=== PATIENT | female | born 1950 | race Caucasian/White ===

== ENCOUNTER 2017-12-26 08:45 | Day surgery (SDC) | payer MEDICARE, BC ==
[~2017-12-26] VITALS: Ht 161.3 cm; Wt 80.1 kg
[2017-12-26] MEDS ORDERED: normal saline 1000ml 1,000 ML IV PRN (09:10)
[2017-12-26 09:15] VITALS: BP 149/86
[2017-12-26] MEDS ORDERED: LOSA25TA96 PO (09:20)
[2017-12-26] MEDS ORDERED: CYCL5TAB14 PEG (09:20)
[2017-12-26] MEDS ORDERED: TRAM50TA2 PO (09:20)
[2017-12-26] MEDS ORDERED: MELO-102 PO (09:20)
[2017-12-26 12:30] VITALS: BP 136/74
[2017-12-26 12:50] VITALS: BP 137/74
[2017-12-26 13:05] VITALS: BP 151/75
[2017-12-26 13:20] VITALS: BP 164/75
[2017-12-26 13:50] VITALS: BP 137/74
== END 2017-12-26 13:40 | disposition home or self-care (01) ==
LOC: SSTAY O 08:45
PROVIDERS: ATTEND Radiology Diagnostic Radiology
DX: M79.89 Other specified soft tissue disorders (principal); I10 Essential (primary) hypertension; E11.9 Type 2 diabetes mellitus without complications; F10.21 Alcohol dependence, in remission; Z90.710 Acquired absence of both cervix and uterus; Z85.42 Personal history of malignant neoplasm of other parts of uterus; Z79.1 Long term (current) use of non-steroidal anti-inflammatories (NSAID); Z79.899 Other long term (current) drug therapy; Z87.891 Personal history of nicotine dependence
CPT/HCPCS: 20206; 76942; A6449; J7030; 88173; 88305; 88341; 88342

== ENCOUNTER 2022-04-05 11:36 | Emergency (ER) | payer MEDICARE, BC ==
[~2022-04-05] VITALS: Ht 161.3 cm; Wt 56.8 kg
[~2022-04-05 11:36] MED LIST: CYCL5TAB14 PEG; LOSA25TA96 PO; MELO-102 PO; TRAM50TA2 PO
[2022-04-05 11:39] VITALS: BP 161/86
== END 2022-04-05 20:47 | disposition left against medical advice (07) ==
LOC: ER 11:36
DX: R53.1 Weakness (principal); Z53.21 Procedure and treatment not carried out due to patient leaving prior to being seen by health care provider
CPT/HCPCS: 82948; 93005

== ENCOUNTER 2022-04-07 19:37 | Inpatient (IN) | payer MEDICARE, BC ==
[~2022-04-07] VITALS: Ht 160 cm; Wt 65.9 kg
[2022-04-07 21:26] LABS: EOSINOPHILS % (AUTO) 0 % (0-6); MONOCYTES # (AUTO) 1.2 X10'3 (0-0.9); MONOCYTES % (AUTO) 7.6 % (2-12)
[2022-04-07 21:28] LABS: BASOPHILS % (AUTO) 0.2 % (0-1); LYMPHOCYTES # (AUTO) 1.1 X10'3 (1.1-4.8); LYMPHOCYTES % (AUTO) 6.9 % (21-51); MEAN PLATELET VOLUME 7.9 FL (7.4-10.4); NEUTROPHILS % (AUTO) 85.3 % (42-75); PLATELET COUNT 465 X10'3 (140-440); WHITE BLOOD COUNT 15.3 X10'3 (4.5-11.0)
[2022-04-07 21:48] LABS: ALANINE AMINOTRANSFERASE 18 U/L (12-78); ALBUMIN 3.6 G/DL (3.4-5.0); ALBUMIN/GLOBULIN RATIO 1.3 (1.1-1.5); ALKALINE PHOSPHATASE 85 IU/L (46-116); ANION GAP 29 (8-16); ASPARTATE AMINO TRANSFERASE 22 U/L (10-37); BILIRUBIN,TOTAL 0.5 MG/DL (0.1-1.0); BLOOD UREA NITROGEN 6 MG/DL (7-18); BUN/CREATININE RATIO 3.5 (6.6-38.0); CHLORIDE 109 MMOL/L (99-107); CREATININE 1.73 MG/DL (0.40-0.90); GLUCOSE 120 MG/DL (70-104); SODIUM 145 MMOL/L (135-145); TOTAL PROTEIN 6.4 G/DL (6.4-8.2); eGFR 29 ML/MIN
[2022-04-07 21:49] LABS: POTASSIUM 4.1 MMOL/L (3.5-5.1)
[2022-04-07 21:58] LABS: TOTAL CARBON DIOXIDE 7.1 MMOL/L (24-32)
--- NOTE | 2022-04-07 22:00 | NUR ---
Patient c/o shortness of breath, beginning to become tachypnic and anxious. Vitals are stable. Patient placed on 2L NC to assist with oxygenation.
[2022-04-07 22:05] LABS: HEMATOCRIT 39.3 % (35.0-45.0); HEMOGLOBIN 13.2 g/dl (12.0-16.0); MEAN CORPUSCULAR HEMOGLOBIN 33.6 PG (27.0-31.0); MEAN CORPUSCULAR VOLUME 100.4 FL (78-98); RED BLOOD COUNT 3.91 X10'6 (4.20-5.60)
[2022-04-07 22:06] LABS: MEAN CORPUSCULAR HGB CONC 33.5 g/dL (33.0-36.5); RED CELL DISTRIBUTION WIDTH 20.6 % (11.5-14.5)
--- NOTE | 2022-04-07 22:10 | NUR ---
Patient assessed by Dr. Vega. Patient becoming increasingly clammy, tachypnic, and work of breath increasing. Vitals remain stable. Awaiting orders.
[2022-04-07] MEDS ORDERED: normal saline 1000ML IV soln IV ONE (22:15)
[2022-04-07] MEDS ORDERED: piperacillin/tazo 3.375gm/50ml 50 ML IV ONE (22:15)
[2022-04-07 22:29] LABS: ANISOCYTOSIS 3+; PLATELET ESTIMATE INCREASED
[2022-04-07 22:44] LABS: ABG OXYGEN SATURATION 98.7 % (94-97); ABG PO2 (T) 158.1 mmHg (75.0-100.0); ALLEN'S TEST Modified; FCOHb 0.7 % (0.0-3.9); FMetHb 0.3 % (0.0-1.5); FO2Hb 97.7 % (94-97); PATIENT TEMPERATURE 36.9; TOTAL HEMOGLOBIN 13.2 G/dl (12.0-16.0)
[2022-04-07] MEDS ORDERED: LORazepam 2 mg/ml vial IV ONE (22:45)
--- NOTE | 2022-04-07 23:00 | NUR ---
Patient to CT.
[2022-04-07 23:06] LABS: D-DIMER < 0.19 MG/L FEU (0-0.50)
--- NOTE | 2022-04-07 23:40 | NUR ---
Patient returned from CT.
[2022-04-08] VITALS (16 sets, daily range): BP systolic 107–211; BP diastolic 50–69
[2022-04-08] MEDS ORDERED: normal saline 1000ML IV soln IV ONE
[2022-04-08 00:33] LABS: CLARITY,URINE SLIGHTLY CLOUDY (Clear); GLUCOSE, URINE NEGATIVE (Neg); KETONES,URINE NEGATIVE (Neg); LEUKOCYTE ESTERASE ,URINE NEGATIVE (Neg); NITRITES, URINE NEGATIVE (Neg); OCCULT BLOOD,URINE MODERATE (Neg); PH,URINE 5.5 (4.8-8.0); PROTEIN,URINE TRACE mg/dl (Neg); UROBILINOGEN,URINE 0.2 E.U/dL (0.2-1.0)
[2022-04-08 00:35] LABS: COLOR,URINE STRAW (Yellow); UA COLLECTION TYPE FOLEY CATH
[2022-04-08] MEDS ORDERED: LORazepam 2 mg/ml vial IV ONE (00:35)
[2022-04-08 00:41] LABS: BACTERIA,URINE FEW /HPF (Neg); COARSE GRANULAR CAST 0-3 /LPF (NEGATIVE); MUCUS STRANDS FEW /LPF (Neg); RBC,URINE 0-2 /HPF (0-2); SQUAMOUS EPITHELIAL CELL,UR FEW /LPF (FEW); WBC,URINE 0-4 /HPF (0-4)
[2022-04-08 01:20] LABS: ETHANOL < 0.010 GM/DL (0.0-0.010)
[2022-04-08] MEDS ORDERED: WARF3TAB56 PO (01:42)
[2022-04-08] MEDS ORDERED: LOSA25TA41 PO (01:42)
[2022-04-08] MEDS ORDERED: TAMO20TA4 PO (01:42)
[2022-04-08] MEDS ORDERED: TRAM50TA2 PO (01:42)
[2022-04-08] MEDS ORDERED: GABA300C PO (01:42)
[2022-04-08] MEDS ORDERED: OMEP20CA16 PO (01:42)
[2022-04-08] MEDS ORDERED: vancomycin/NS 1 GM ADD-VANTAGE 250 ML IV ONE (01:45)
[2022-04-08 02:18] LABS: URINE AMPHETAMINE SCREEN NEGATIVE (Neg); URINE BARBITUATE SCREEN NEGATIVE (Neg); URINE BENZODIAZEPINES SCREEN NEGATIVE (Neg); URINE CANNABINOID SCREEN NEGATIVE (Neg); URINE COCAINE SCREEN NEGATIVE (Neg); URINE METHADONE SCREEN NEGATIVE (Neg); URINE OPIATE SCREEN NEGATIVE (Neg); URINE PHENCYCLIDINE SCREEN NEGATIVE (Neg)
--- NOTE | 2022-04-08 02:30 | NUR ---
Patient seemingly not regulating body temperature appropriately. Temp tenorio hooked up to the monitor after failed attempts with oral and axillary routes, bladder temp reading 90F. Barehugger applied to patient.
[2022-04-08] MEDS ORDERED: ringers solution, lactated 1000ml IV soln IV ONE (05:35)
--- NOTE | 2022-04-08 05:43 | NUR ---
NO ICU ORDERS YET, CALL OUT TO DR MORALES, CURRENTLY NECK [employer]. PER DR MORALES, HE IS CONTACTING DR COX AND ORDERS WILL BE PLACED
[2022-04-08] MEDS ORDERED: LIDOcaine 2% 10ml TOPICAL JELLY (Urojet) TP ONE (05:45)
[2022-04-08] MEDS ORDERED: acetaminophen 325mg tablet PO PRN (05:45)
[2022-04-08] MEDS: sodium bicarbonate (8.4%) inj. 150 MEQ in dextrose 5%-water 1,000 ML IV SCH ×2 (06:24→18:28)
[2022-04-08 07:13] LABS: ABG BASE EXCESS -23.9 mmol/L (-2.0-2.0); ABG HCO3 3.5 mmol/L (22.0-26.0); ABG OXYGEN SATURATION 98.7 % (94-97); ABG PCO2 (T) 11.7 mmHg (32.0-45.0); ABG PO2 (T) 137.8 mmHg (75.0-100.0); ALLEN'S TEST POSITIVE; FCOHb 0.7 % (0.0-3.9); FLOW 0 L/min; FMetHb 0.3 % (0.0-1.5); FO2Hb 97.7 % (94-97); TOTAL HEMOGLOBIN 12.9 G/dl (12.0-16.0)
--- NOTE | 2022-04-08 07:13 | NUR ---
have pt on nonrebreather mask not connected to 02 ,to retain co2,clarified with clarissa charge nurse .pt spo2 99% with mask on .
[2022-04-08] MEDS ORDERED: heparin, porcine 5000 units/ml vial SQ SCH (08:00)
[2022-04-08] MEDS ORDERED: VANCOMYCIN 1,500MG inj. 1,500 MG in normal saline 500ml IV soln 500 ML IV SCH (08:00)
[2022-04-08] MEDS ORDERED: hydrALAZINE 20mg/ml inj. IV PRN (08:10)
[2022-04-08] MEDS ORDERED: NORepinephrine 8mg/ 250ml NS 250 ML IV SCH (08:10)
[2022-04-08] MEDS: ipratropium/albuterol 3ml nebule NEB PRN (08:39)
[2022-04-08] MEDS ORDERED: methylPREDNISolone sod succ 125mg/2ml vial IV ONE ×2 (08:50→16:00)
[2022-04-08 09:18] LABS: ALANINE AMINOTRANSFERASE 20 U/L (12-78); ALBUMIN 3.1 G/DL (3.4-5.0); ALBUMIN/GLOBULIN RATIO 1.2 (1.1-1.5); ALKALINE PHOSPHATASE 78 IU/L (46-116); ANION GAP 27 (8-16); ASPARTATE AMINO TRANSFERASE 33 U/L (10-37); BILIRUBIN,TOTAL 0.4 MG/DL (0.1-1.0); BLOOD UREA NITROGEN 6 MG/DL (7-18); BUN/CREATININE RATIO 3.9 (6.6-38.0); CALCIUM 7.9 MG/DL (8.5-10.1); CHLORIDE 112 MMOL/L (99-107); CREATININE 1.53 MG/DL (0.40-0.90); GLUCOSE 123 MG/DL (70-104); POTASSIUM 4.2 MMOL/L (3.5-5.1); SODIUM 145 MMOL/L (135-145); TOTAL PROTEIN 5.7 G/DL (6.4-8.2); eGFR 33 ML/MIN
[2022-04-08 09:22] LABS: TOTAL CARBON DIOXIDE 6.4 MMOL/L (24-32)
[2022-04-08] MEDS: methylPREDNISolone sod succ 125mg/2ml vial IV SCH ×2 (09:54→17:15)
[2022-04-08] MEDS: montelukast 10mg tablet PO SCH (09:55)
[2022-04-08] MEDS ORDERED: PERFLUTREN PROTEIN-A MICROSPHR (Optison) 0.22 MG/ML 3ML VIAL IV ONE (10:55)
[2022-04-08] MEDS: cefTRIAXone 1g/NS 100ml IVPB IV SCH (11:47)
[2022-04-08] MEDS: pantoprazole 40mg Tablet.DR PO SCH (11:51)
[2022-04-08] MEDS: DOXYCYCLINE 100MG CAPSULE PO SCH ×2 (11:51→17:15)
[2022-04-08 12:14] LABS: SODIUM,URINE RANDOM 64 MEQ/L
[2022-04-08] MEDS: gabapentin 300mg capsule PO SCH ×2 (13:25→20:55)
[2022-04-08] MEDS ORDERED: ondansetron/PF 4mg/2ml inj IV PRN (14:55)
[2022-04-08] MEDS ORDERED: ondansetron/PF 4mg/2ml inj ONE (14:57)
[2022-04-08 15:13] LABS: ALANINE AMINOTRANSFERASE 21 U/L (12-78); ALBUMIN 3.1 G/DL (3.4-5.0); ALBUMIN/GLOBULIN RATIO 1.2 (1.1-1.5); ALKALINE PHOSPHATASE 76 IU/L (46-116); ANION GAP 24 (8-16); ASPARTATE AMINO TRANSFERASE 38 U/L (10-37); BILIRUBIN,TOTAL 0.6 MG/DL (0.1-1.0); BLOOD UREA NITROGEN 5 MG/DL (7-18); BUN/CREATININE RATIO 3.6 (6.6-38.0); CALCIUM 8.1 MG/DL (8.5-10.1); CHLORIDE 110 MMOL/L (99-107); CREATININE 1.39 MG/DL (0.40-0.90); GLUCOSE 125 MG/DL (70-104); POTASSIUM 3.3 MMOL/L (3.5-5.1); SODIUM 144 MMOL/L (135-145); TOTAL PROTEIN 5.6 G/DL (6.4-8.2); eGFR 37 ML/MIN
--- NOTE | 2022-04-08 20:15 | NUR ---
called Dr. Cox about K+. Continue to monitor for now.
[2022-04-08] MEDS ORDERED: warfarin 1mg tablet PO ONE (21:00)
[2022-04-09] VITALS (25 sets, daily range): BP systolic 106–133; BP diastolic 51–83
[2022-04-09 03:20] LABS: ABG BASE EXCESS -6.7 mmol/L (-2.0-2.0); ABG HCO3 14.4 mmol/L (22.0-26.0); ABG OXYGEN SATURATION 97.4 % (94-97); ABG PCO2 (T) 20.1 mmHg (32.0-45.0); ABG PO2 (T) 85.9 mmHg (75.0-100.0); ALLEN'S TEST POSITIVE; FCOHb 0.8 % (0.0-3.9); FMetHb 0.3 % (0.0-1.5); FO2Hb 96.3 % (94-97); PATIENT TEMPERATURE 37.9; TOTAL HEMOGLOBIN 11.9 G/dl (12.0-16.0)
[2022-04-09] MEDS: sodium bicarbonate (8.4%) inj. 150 MEQ in dextrose 5%-water 1,000 ML IV SCH ×2 (05:03→17:33)
[2022-04-09 05:07] LABS: ALANINE AMINOTRANSFERASE 20 U/L (12-78); ALBUMIN 2.8 G/DL (3.4-5.0); ALKALINE PHOSPHATASE 74 IU/L (46-116); ANION GAP 19 (8-16); ASPARTATE AMINO TRANSFERASE 36 U/L (10-37); BILIRUBIN,TOTAL 0.6 MG/DL (0.1-1.0); BLOOD UREA NITROGEN 4 MG/DL (7-18); BUN/CREATININE RATIO 3.2 (6.6-38.0); CALCIUM 7.7 MG/DL (8.5-10.1); CHLORIDE 110 MMOL/L (99-107); CREATININE 1.24 MG/DL (0.40-0.90); GLUCOSE 152 MG/DL (70-104); POTASSIUM 3.1 MMOL/L (3.5-5.1); SODIUM 145 MMOL/L (135-145); TOTAL CARBON DIOXIDE 16.1 MMOL/L (24-32); TOTAL PROTEIN 5.6 G/DL (6.4-8.2); eGFR 42 ML/MIN
[2022-04-09 06:48] LABS: TOTAL CARBON DIOXIDE 10.4 MMOL/L (24-32)
[2022-04-09 07:23] LABS: BASOPHILS % (AUTO) 0.1 % (0-1); EOSINOPHILS % (AUTO) 0 % (0-6); HEMATOCRIT 36.5 % (35.0-45.0); HEMOGLOBIN 12.1 g/dl (12.0-16.0); LYMPHOCYTES # (AUTO) 0.6 X10'3 (1.1-4.8); LYMPHOCYTES % (AUTO) 4.1 % (21-51); MEAN CORPUSCULAR HEMOGLOBIN 33.8 PG (27.0-31.0); MEAN CORPUSCULAR HGB CONC 33.1 g/dL (33.0-36.5); MEAN CORPUSCULAR VOLUME 102.2 FL (78-98); MONOCYTES # (AUTO) 0.4 X10'3 (0-0.9); MONOCYTES % (AUTO) 2.8 % (2-12); NEUTROPHILS # (AUTO) 12.7 X10'3 (1.8-7.7); PLATELET COUNT 368 X10'3 (140-440); RED BLOOD COUNT 3.57 X10'6 (4.20-5.60); RED CELL DISTRIBUTION WIDTH 20.9 % (11.5-14.5); WHITE BLOOD COUNT 13.7 X10'3 (4.5-11.0)
[2022-04-09 07:33] LABS: MAGNESIUM 1.6 MG/DL (1.5-2.4); PHOSPHORUS 1.9 MG/DL (2.3-4.5)
[2022-04-09 07:45] LABS: ANISOCYTOSIS 3+; PLATELET ESTIMATE NORMAL; POIKILOCYTOSIS FEW; POLYCHROMASIA 1+; TARGET CELLS 1+
[2022-04-09] MEDS ORDERED: montelukast 10mg tablet PO SCH (08:00)
[2022-04-09] MEDS: cefTRIAXone 1g/NS 100ml IVPB IV SCH (08:22)
[2022-04-09] MEDS: methylPREDNISolone sod succ 125mg/2ml vial IV SCH ×3 (08:24→15:19)
[2022-04-09] MEDS: gabapentin 300mg capsule PO SCH ×3 (08:26→20:39)
[2022-04-09] MEDS: DOXYCYCLINE 100MG CAPSULE PO SCH ×2 (08:26→17:39)
[2022-04-09] MEDS: montelukast 10mg tablet PO SCH (08:26)
[2022-04-09] MEDS: pantoprazole 40mg Tablet.DR PO SCH (08:26)
[2022-04-09] MEDS ORDERED: potassium Cl 10 mEq/100mL bag IV ONE (08:55)
[2022-04-09] MEDS ORDERED: metoprolol tartrate 1mg/ml inj IV ONE ×2 (08:55→09:04)
[2022-04-09] MEDS ORDERED: magnesium Cl slow-release 64mg tablet PO PRN (09:00)
[2022-04-09] MEDS ORDERED: magnesium 2GM in 50ml NS 50 ML IV PRN (09:00)
[2022-04-09] MEDS ORDERED: magnesium 4gm in 100ml NS 100 ML IV PRN (09:00)
[2022-04-09] MEDS ORDERED: potassium CL 10mEq/100ml bag 100 ML IV PRN (09:00)
[2022-04-09] MEDS: carVEDilol 3.125mg tablet PO SCH ×2 (09:46→20:39)
[2022-04-09] MEDS: POTASSIUM BICARB 20meq eff tab 20 MEQ TABLET.EFF PO PRN ×2 (09:47→15:20)
--- NOTE | 2022-04-09 10:12 | NUR ---
MD NOTIFIED OF PT'S K OF 3.2. MD ORDERED ONE TIME DOSE OF 40 mEq PO, 10 mEq IV X4. ELECTROLYTE PROTOCOL ENTERED.
[2022-04-09 10:25] LABS: POTASSIUM 3.1 MMOL/L (3.5-5.1)
--- NOTE | 2022-04-09 11:50 | NUR ---
SMITH CATHETER REMOVED PER ORDERS
[2022-04-09] MEDS ORDERED: potassium phosphate inj 15 MMOL in NS 250ml IV soln 250 ML IV ONE (12:30)
--- NOTE | 2022-04-09 14:25 | NUR ---
RECEIVED CRITICAL LAB, LACTIC ACID - 6.6. NOTIFIED MD, TRANSFER TO TELE CANCELLED.
--- NOTE | 2022-04-09 14:27 | NUR ---
LEFT MESSAGE WITH DONNA THAT PT WON'T BE TRANSFERRING TO TELE TODAY.
--- NOTE | 2022-04-09 15:35 | NUR ---
Problems reprioritized. Patient report given, questions answered & plan of care reviewed with FISH BENZ.
--- NOTE | 2022-04-09 15:41 | NUR ---
Patient in room CICU 2006. I have received report from Cyndie WHITTEN and had the opportunity to ask questions and awaiting.patients arrival
[2022-04-09] MEDS: ipratropium 0.5 MG/2.5ML nebule IH SCH ×2 (16:08→20:57)
[2022-04-09 16:41] LABS: ALANINE AMINOTRANSFERASE 26 U/L (12-78); ALBUMIN 2.7 G/DL (3.4-5.0); ALKALINE PHOSPHATASE 75 IU/L (46-116); ANION GAP 17 (8-16); ASPARTATE AMINO TRANSFERASE 41 U/L (10-37); BILIRUBIN,TOTAL 0.4 MG/DL (0.1-1.0); BLOOD UREA NITROGEN 7 MG/DL (7-18); BUN/CREATININE RATIO 4.8 (6.6-38.0); CALCIUM 7.6 MG/DL (8.5-10.1); CHLORIDE 106 MMOL/L (99-107); CREATININE 1.46 MG/DL (0.40-0.90); GLUCOSE 180 MG/DL (70-104); POTASSIUM 3.8 MMOL/L (3.5-5.1); SODIUM 144 MMOL/L (135-145); TOTAL CARBON DIOXIDE 21.3 MMOL/L (24-32); TOTAL PROTEIN 5.3 G/DL (6.4-8.2); eGFR 35 ML/MIN
--- NOTE | 2022-04-09 17:14 | NUR ---
was informed by charge nurse belkys that patient no longer coming to floor.
[2022-04-09] MEDS: normal saline 1000ml 1,000 ML IV SCH (17:35)
--- NOTE | 2022-04-09 18:07 | NUR ---
CRITICAL LAB - 5.1. ATTEMPTED TO NOTIFY X2 BY 2 NUMBERS. PREVIOUS LACTIC ACID 6.6.
--- NOTE | 2022-04-09 18:33 | NUR ---
Problems reprioritized. Patient report given, questions answered & plan of care reviewed with FISH COVARRUBIAS.
[2022-04-09] MEDS: apixaban 2.5mg tablet PO SCH (20:39)
[2022-04-10] VITALS (15 sets, daily range): BP systolic 94–139; BP diastolic 57–76
[2022-04-10] MEDS: methylPREDNISolone sod succ 125mg/2ml vial IV SCH ×3 (00:20→17:20)
[2022-04-10] MEDS: ipratropium 0.5 MG/2.5ML nebule IH SCH ×4 (02:17→20:40)
[2022-04-10] MEDS: normal saline 1000ml 1,000 ML IV SCH (03:00)
--- NOTE | 2022-04-10 06:00 | NUR ---
Patient in room CICU 2006. I have received report from FISH COVARRUBIAS, and had the opportunity to ask questions and assume patient care.
[2022-04-10 06:01] LABS: ALANINE AMINOTRANSFERASE 28 U/L (12-78); ALBUMIN 2.4 G/DL (3.4-5.0); ALKALINE PHOSPHATASE 65 IU/L (46-116); ANION GAP 10 (8-16); ASPARTATE AMINO TRANSFERASE 32 U/L (10-37); BILIRUBIN,TOTAL 0.6 MG/DL (0.1-1.0); BLOOD UREA NITROGEN 10 MG/DL (7-18); BUN/CREATININE RATIO 8.6 (6.6-38.0); CALCIUM 7.1 MG/DL (8.5-10.1); CHLORIDE 108 MMOL/L (99-107); CREATININE 1.16 MG/DL (0.40-0.90); GLUCOSE 155 MG/DL (70-104); MAGNESIUM 1.6 MG/DL (1.5-2.4); POTASSIUM 3.7 MMOL/L (3.5-5.1); SODIUM 145 MMOL/L (135-145); TOTAL CARBON DIOXIDE 27.3 MMOL/L (24-32); TOTAL PROTEIN 4.8 G/DL (6.4-8.2); eGFR 46 ML/MIN
[2022-04-10] MEDS: K and/or MAG REPLACEMENT MC SCH ×2 (08:00→19:32)
[2022-04-10] MEDS: pantoprazole 40mg Tablet.DR PO SCH (09:21)
[2022-04-10] MEDS: DOXYCYCLINE 100MG CAPSULE PO SCH ×2 (09:21→19:30)
[2022-04-10] MEDS: montelukast 10mg tablet PO SCH (09:21)
[2022-04-10] MEDS: carVEDilol 3.125mg tablet PO SCH ×2 (09:21→19:30)
[2022-04-10] MEDS: apixaban 2.5mg tablet PO SCH ×2 (09:21→19:29)
[2022-04-10] MEDS: gabapentin 300mg capsule PO SCH ×2 (09:21→13:50)
--- NOTE | 2022-04-10 10:58 | NUR ---
REPORT GIVEN TO FISH FULLER. TRANSFERRING TO TELE.
--- NOTE | 2022-04-10 11:00 | NUR ---
Received report from FISH Agee. Waiting for patient to be transferred to room 3018B.
--- NOTE | 2022-04-10 11:25 | NUR ---
Patient arrived to room 3018B via wheelchair from ICU. Patient had bicarb and normal saline running. Normal saline was discontinued this morning, so the drip was turned off once the patient got to the floor. The patient had an IV antibiotic to be administered at 0800, but was never given by the RN in ICU FISH Agee. The IV medication was brought up and administered once the patient got to the floor. Vital signs stable, call light within reach and patient in no acute distress.
[2022-04-10] MEDS: cefTRIAXone 1g/NS 100ml IVPB IV SCH (11:57)
--- NOTE | 2022-04-10 12:14 | NUR ---
Orders for PT eval put in per Dr. Wharton.
[2022-04-10] MEDS: sodium bicarbonate (8.4%) inj. 150 MEQ in dextrose 5%-water 1,000 ML IV SCH ×2 (15:24→17:21)
--- NOTE | 2022-04-10 18:02 | NUR ---
Problems reprioritized. Patient report given, questions answered & plan of care reviewed with FISH Pearce.
[2022-04-10] MEDS: acetaminophen 325mg tablet PO PRN (19:29)
[2022-04-10] MEDS: gabapentin 400mg capsule PO SCH (19:30)
[2022-04-11] MEDS: methylPREDNISolone sod succ 125mg/2ml vial IV SCH ×2 (00:19→07:59)
[2022-04-11 02:00] VITALS: BP 148/79
[2022-04-11] MEDS: ipratropium 0.5 MG/2.5ML nebule IH SCH ×4 (02:14→20:16)
[2022-04-11 06:00] VITALS: BP 125/74
[2022-04-11 07:23] LABS: ALANINE AMINOTRANSFERASE 32 U/L (12-78); ALBUMIN 2.6 G/DL (3.4-5.0); ALKALINE PHOSPHATASE 71 IU/L (46-116); ANION GAP 11 (8-16); ASPARTATE AMINO TRANSFERASE 30 U/L (10-37); BILIRUBIN,TOTAL 0.8 MG/DL (0.1-1.0); BLOOD UREA NITROGEN 17 MG/DL (7-18); BUN/CREATININE RATIO 17.3 (6.6-38.0); CALCIUM 7.3 MG/DL (8.5-10.1); CHLORIDE 104 MMOL/L (99-107); CREATININE 0.98 MG/DL (0.40-0.90); GLUCOSE 157 MG/DL (70-104); MAGNESIUM 1.8 MG/DL (1.5-2.4); POTASSIUM 3.1 MMOL/L (3.5-5.1); SODIUM 145 MMOL/L (135-145); TOTAL CARBON DIOXIDE 29.8 MMOL/L (24-32); TOTAL PROTEIN 5.1 G/DL (6.4-8.2); eGFR 56 ML/MIN
[2022-04-11] MEDS: pantoprazole 40mg Tablet.DR PO SCH (07:30)
--- NOTE | 2022-04-11 07:52 | NUR ---
[id number] HAS CRITICAL LAB LACTIC ACID 4.0 PLEASE ADVISE. REMI [id number]
[2022-04-11] MEDS: K and/or MAG REPLACEMENT MC SCH ×2 (08:00→19:44)
[2022-04-11] MEDS: cefTRIAXone 1g/NS 100ml IVPB IV SCH (08:02)
[2022-04-11] MEDS: carVEDilol 3.125mg tablet PO SCH ×2 (08:53→19:43)
[2022-04-11] MEDS: montelukast 10mg tablet PO SCH (08:53)
[2022-04-11] MEDS: POTASSIUM BICARB 20meq eff tab 20 MEQ TABLET.EFF PO PRN ×3 (08:53→17:41)
[2022-04-11] MEDS: gabapentin 400mg capsule PO SCH ×2 (08:53→19:43)
[2022-04-11] MEDS: DOXYCYCLINE 100MG CAPSULE PO SCH ×2 (08:53→17:34)
[2022-04-11] MEDS: apixaban 2.5mg tablet PO SCH ×2 (08:53→19:43)
[2022-04-11] MEDS: acetaminophen 325mg tablet PO PRN ×3 (10:34→23:51)
--- NOTE | 2022-04-11 10:35 | NUR ---
PAGER ID: [phone] MESSAGE: NATALY BAILEY [email or web address], [email or web address] ON 3018B, DEIRDRE LIMA
[2022-04-11 11:00] VITALS: BP 143/73
[2022-04-11] MEDS: normal saline 1000ml 1,000 ML IV SCH ×2 (11:15→21:15)
[2022-04-11 11:51] LABS: BASOPHILS # (AUTO) 0.1 X10'3 (0-0.2); BASOPHILS % (AUTO) 0.9 % (0-1); EOSINOPHILS % (AUTO) 0.3 % (0-6); HEMATOCRIT 34.5 % (35.0-45.0); HEMOGLOBIN 11.2 g/dl (12.0-16.0); LYMPHOCYTES # (AUTO) 0.4 X10'3 (1.1-4.8); LYMPHOCYTES % (AUTO) 3.8 % (21-51); MEAN CORPUSCULAR HEMOGLOBIN 32.8 PG (27.0-31.0); MEAN CORPUSCULAR HGB CONC 32.5 g/dL (33.0-36.5); MEAN CORPUSCULAR VOLUME 100.7 FL (78-98); MEAN PLATELET VOLUME 8.6 FL (7.4-10.4); MONOCYTES # (AUTO) 0.3 X10'3 (0-0.9); NEUTROPHILS # (AUTO) 9.7 X10'3 (1.8-7.7); PLATELET COUNT 281 X10'3 (140-440); RED BLOOD COUNT 3.43 X10'6 (4.20-5.60); RED CELL DISTRIBUTION WIDTH 20.8 % (11.5-14.5); WHITE BLOOD COUNT 10.6 X10'3 (4.5-11.0)
[2022-04-11 12:10] LABS: ABG BASE EXCESS 5.2 mmol/L (-2.0-2.0); ABG HCO3 26.8 mmol/L (22.0-26.0); ABG OXYGEN SATURATION 92.4 % (94-97); ABG PCO2 (T) 29.9 mmHg (32.0-45.0); ABG PO2 (T) 56.3 mmHg (75.0-100.0); ALLEN'S TEST POSITIVE; FCOHb 0.2 % (0.0-3.9); FMetHb 0.1 % (0.0-1.5); FO2Hb 92.1 % (94-97); TOTAL HEMOGLOBIN 11.7 G/dl (12.0-16.0)
[2022-04-11 12:21] LABS: ANISOCYTOSIS 3+; PLATELET ESTIMATE NORMAL; STOMATOCYTES 1+; TARGET CELLS 1+
[2022-04-11 12:22] LABS: HYPOCHROMASIA 1+; POLYCHROMASIA FEW
--- NOTE | 2022-04-11 14:51 | NUR ---
[id number] 3018B AWARE OF LACTIC ACID LEVEL NO NEW ORDERS, PER CHARGE NURSE.
[2022-04-11 15:00] VITALS: BP 130/75
[2022-04-11 16:09] LABS: ALANINE AMINOTRANSFERASE 38 U/L (12-78); ALBUMIN 2.6 G/DL (3.4-5.0); ALKALINE PHOSPHATASE 81 IU/L (46-116); ANION GAP 12 (8-16); ASPARTATE AMINO TRANSFERASE 36 U/L (10-37); BILIRUBIN,TOTAL 0.4 MG/DL (0.1-1.0); BLOOD UREA NITROGEN 19 MG/DL (7-18); BUN/CREATININE RATIO 17.3 (6.6-38.0); CALCIUM 7.6 MG/DL (8.5-10.1); CHLORIDE 103 MMOL/L (99-107); GLUCOSE 169 MG/DL (70-104); POTASSIUM 3.3 MMOL/L (3.5-5.1); SODIUM 144 MMOL/L (135-145); TOTAL CARBON DIOXIDE 29.2 MMOL/L (24-32); TOTAL PROTEIN 5.2 G/DL (6.4-8.2); eGFR 49 ML/MIN
[2022-04-11 18:00] VITALS: BP 117/66
[2022-04-11 22:00] VITALS: BP 143/70
[2022-04-12 02:00] VITALS: BP 111/58
[2022-04-12] MEDS: ipratropium 0.5 MG/2.5ML nebule IH SCH ×4 (02:59→20:32)
[2022-04-12 06:00] VITALS: BP 173/93
[2022-04-12 06:59] LABS: ALANINE AMINOTRANSFERASE 37 U/L (12-78); ALBUMIN 2.7 G/DL (3.4-5.0); ALKALINE PHOSPHATASE 69 IU/L (46-116); ANION GAP 9 (8-16); ASPARTATE AMINO TRANSFERASE 30 U/L (10-37); BILIRUBIN,TOTAL 0.9 MG/DL (0.1-1.0); BLOOD UREA NITROGEN 17 MG/DL (7-18); BUN/CREATININE RATIO 17.5 (6.6-38.0); CALCIUM 7.4 MG/DL (8.5-10.1); CHLORIDE 106 MMOL/L (99-107); CREATININE 0.97 MG/DL (0.40-0.90); GLUCOSE 105 MG/DL (70-104); MAGNESIUM 1.7 MG/DL (1.5-2.4); POTASSIUM 3.5 MMOL/L (3.5-5.1); SODIUM 146 MMOL/L (135-145); TOTAL CARBON DIOXIDE 30.7 MMOL/L (24-32); TOTAL PROTEIN 5.4 G/DL (6.4-8.2); eGFR 56 ML/MIN
[2022-04-12] MEDS: acetaminophen 325mg tablet PO PRN ×2 (07:23→16:54)
[2022-04-12] MEDS: normal saline 1000ml 1,000 ML IV SCH ×2 (07:24→17:54)
[2022-04-12] MEDS ORDERED: predniSONE 20 mg tablet PO SCH (08:00)
[2022-04-12] MEDS: K and/or MAG REPLACEMENT MC SCH ×2 (08:00→20:00)
[2022-04-12] MEDS: pantoprazole 40mg Tablet.DR PO SCH (08:44)
[2022-04-12] MEDS: carVEDilol 3.125mg tablet PO SCH ×2 (08:45→20:53)
[2022-04-12] MEDS: cefTRIAXone 1g/NS 100ml IVPB IV SCH (08:45)
[2022-04-12] MEDS: apixaban 2.5mg tablet PO SCH ×2 (08:45→20:54)
[2022-04-12] MEDS: DOXYCYCLINE 100MG CAPSULE PO SCH ×2 (08:46→17:51)
[2022-04-12] MEDS: gabapentin 400mg capsule PO SCH ×2 (08:46→20:53)
[2022-04-12] MEDS: montelukast 10mg tablet PO SCH (08:46)
--- NOTE | 2022-04-12 09:00 | NUR ---
Pt with a critical Lactic Acid of 7.0 drawn this AM. MD Lee notified. Orders received.
--- NOTE | 2022-04-12 09:59 | NUR ---
Initial: Pt admitted w/ acute respiratory failure, metabolic acidosis, and MALVIN w/ CKD per EMR. Currently on Regular diet w/ avg intake 50% of meals, close to meeting est energy needs. Will provide smoothie WL. LBM 04/11, on room air per documentation. Will continue to monitor. Recs: 1. Continue Regular diet as tolerated 2. Smoothie WL 3. Bowel care per rx 4. Scaled wts Addendum: 04/12/22 at [address] Amended: Links added.
[2022-04-12 11:00] VITALS: BP 154/75
[2022-04-12 12:27] LABS: ABG PCO2 (T) < 10.0 mmHg (32.0-45.0)
[2022-04-12 15:00] VITALS: BP 170/82
[2022-04-12 15:28] LABS: ALANINE AMINOTRANSFERASE 46 U/L (12-78); ALBUMIN 2.6 G/DL (3.4-5.0); ALKALINE PHOSPHATASE 72 IU/L (46-116); ANION GAP 6 (8-16); ASPARTATE AMINO TRANSFERASE 43 U/L (10-37); BILIRUBIN,TOTAL 0.8 MG/DL (0.1-1.0); BLOOD UREA NITROGEN 17 MG/DL (7-18); BUN/CREATININE RATIO 17.5 (6.6-38.0); CALCIUM 7.5 MG/DL (8.5-10.1); CHLORIDE 106 MMOL/L (99-107); CREATININE 0.97 MG/DL (0.40-0.90); GLUCOSE 154 MG/DL (70-104); POTASSIUM 3.3 MMOL/L (3.5-5.1); SODIUM 142 MMOL/L (135-145); TOTAL CARBON DIOXIDE 29.8 MMOL/L (24-32); TOTAL PROTEIN 5.2 G/DL (6.4-8.2); eGFR 56 ML/MIN
[2022-04-12] MEDS ORDERED: IOHEXOL 300 MG/ML 30ML INFUS..BTL IV ONE (15:28)
[2022-04-12 18:00] VITALS: BP 129/75
[2022-04-12] MEDS ORDERED: NORMAL SALINE IV ONE (19:00)
[2022-04-12] MEDS ORDERED: VANCOMYCIN IV ONE (19:00)
[2022-04-12] MEDS: traMADol 50MG tablet PO PRN (20:53)
[2022-04-12 22:00] VITALS: BP 151/58
[2022-04-13 02:00] VITALS: BP 139/68
[2022-04-13] MEDS: ipratropium 0.5 MG/2.5ML nebule IH SCH ×4 (02:53→20:11)
[2022-04-13] MEDS: normal saline 1000ml 1,000 ML IV SCH ×3 (03:15→23:15)
[2022-04-13] MEDS: acetaminophen 325mg tablet PO PRN ×2 (05:48→12:36)
[2022-04-13 07:00] VITALS: BP 153/70
[2022-04-13 07:32] LABS: MAGNESIUM 1.6 MG/DL (1.5-2.4); POTASSIUM 3.1 MMOL/L (3.5-5.1)
[2022-04-13] MEDS ORDERED: predniSONE 20 mg tablet PO SCH (08:00)
[2022-04-13] MEDS: K and/or MAG REPLACEMENT MC SCH ×3 (08:00→19:49)
[2022-04-13] MEDS: ipratropium/albuterol 3ml nebule NEB PRN (08:40)
[2022-04-13 08:51] LABS: BASOPHILS % (AUTO) 0.1 % (0-1); EOSINOPHILS % (AUTO) 0 % (0-6); HEMATOCRIT 36.3 % (35.0-45.0); HEMOGLOBIN 11.7 g/dl (12.0-16.0); LYMPHOCYTES # (AUTO) 1.7 X10'3 (1.1-4.8); LYMPHOCYTES % (AUTO) 8.5 % (21-51); MEAN CORPUSCULAR HEMOGLOBIN 33.6 PG (27.0-31.0); MEAN CORPUSCULAR HGB CONC 32.3 g/dL (33.0-36.5); MEAN CORPUSCULAR VOLUME 103.8 FL (78-98); MEAN PLATELET VOLUME 8.7 FL (7.4-10.4); MONOCYTES # (AUTO) 1.2 X10'3 (0-0.9); NEUTROPHILS % (AUTO) 85.4 % (42-75); PLATELET COUNT 243 X10'3 (140-440); RED CELL DISTRIBUTION WIDTH 20.5 % (11.5-14.5); WHITE BLOOD COUNT 19.9 X10'3 (4.5-11.0)
--- NOTE | 2022-04-13 09:20 | NUR ---
PAGER ID: [phone] MESSAGE: [phone] Viridiana Freeman: Patient has critical lab value - Lactic Acid 5.7 Rhianna PCU
[2022-04-13 09:27] LABS: ALANINE AMINOTRANSFERASE 37 U/L (12-78); ALBUMIN 2.4 G/DL (3.4-5.0); ALBUMIN/GLOBULIN RATIO 0.9 (1.1-1.5); ALKALINE PHOSPHATASE 60 IU/L (46-116); ANION GAP 10 (8-16); ASPARTATE AMINO TRANSFERASE 31 U/L (10-37); BILIRUBIN,TOTAL 0.8 MG/DL (0.1-1.0); BLOOD UREA NITROGEN 16 MG/DL (7-18); BUN/CREATININE RATIO 15.4 (6.6-38.0); CALCIUM 7.6 MG/DL (8.5-10.1); CHLORIDE 107 MMOL/L (99-107); CREATININE 1.04 MG/DL (0.40-0.90); GLUCOSE 146 MG/DL (70-104); POTASSIUM 3.1 MMOL/L (3.5-5.1); SODIUM 144 MMOL/L (135-145); TOTAL CARBON DIOXIDE 26.9 MMOL/L (24-32); eGFR 52 ML/MIN
[2022-04-13] MEDS: traMADol 50MG tablet PO PRN (09:33)
[2022-04-13] MEDS: carVEDilol 3.125mg tablet PO SCH ×2 (09:33→19:42)
[2022-04-13] MEDS: cefTRIAXone 1g/NS 100ml IVPB IV SCH (09:33)
[2022-04-13] MEDS: DOXYCYCLINE 100MG CAPSULE PO SCH (09:33)
[2022-04-13] MEDS: pantoprazole 40mg Tablet.DR PO SCH (09:34)
[2022-04-13] MEDS: montelukast 10mg tablet PO SCH (09:34)
[2022-04-13] MEDS: gabapentin 400mg capsule PO SCH ×2 (09:34→19:42)
[2022-04-13] MEDS: apixaban 2.5mg tablet PO SCH ×2 (09:34→19:42)
[2022-04-13] MEDS ORDERED: potassium Cl 40MEQ/1/2NS 520ml 520 ML IV PRN (09:45)
[2022-04-13] MEDS ORDERED: magnesium 2GM in 50ml NS 50 ML IV PRN (09:45)
[2022-04-13] MEDS ORDERED: potassium Cl 20 mEq SR tablet PO PRN (09:45)
[2022-04-13] MEDS ORDERED: magnesium 4gm in 100ml NS 100 ML IV PRN (09:45)
[2022-04-13] MEDS ORDERED: magnesium Cl slow-release 64mg tablet PO PRN (09:45)
[2022-04-13] MEDS: potassium Cl 20 mEq SR tablet PO PRN ×2 (10:21→19:50)
[2022-04-13 10:44] LABS: ANISOCYTOSIS 3+; PLATELET ESTIMATE NORMAL; STOMATOCYTES 1+
[2022-04-13 11:00] VITALS: BP 137/59
--- NOTE | 2022-04-13 12:19 | NUR ---
Patient requesting something for pain. paged PAGER ID: [phone] MESSAGE: [phone] Viridiana Freeman: Patient is complaining of leg pain she says is an 8. Had tramadol 2 hours ago, but has nothing else for pain. Can she have anything else? Thanks! Rhianna [facility] ext [phone]
[2022-04-13 15:00] VITALS: BP 119/64
[2022-04-13] MEDS: HYDROcodone/acetaminophen 5mg/325mg tablet PO PRN ×2 (17:21→22:10)
[2022-04-13 18:00] VITALS: BP 123/70
[2022-04-13] MEDS ORDERED: vancomycin/NS 1 GM ADD-VANTAGE 250 ML IV SCH (19:00)
[2022-04-13 22:00] VITALS: BP 148/66
[2022-04-14] VITALS (8 sets, daily range): BP systolic 110–165; BP diastolic 56–70
[2022-04-14] MEDS: ipratropium/albuterol 3ml nebule NEB PRN (02:09)
[2022-04-14] MEDS: ipratropium 0.5 MG/2.5ML nebule IH SCH ×3 (02:11→15:21)
[2022-04-14] MEDS: HYDROcodone/acetaminophen 5mg/325mg tablet PO PRN ×4 (04:53→19:46)
--- NOTE | 2022-04-14 06:32 | NUR ---
Patient in room PCU 3018. I have received report from FISH DRIVER, and had the opportunity to ask questions and assume patient care.
[2022-04-14 06:42] LABS: BASOPHILS % (AUTO) 0.1 % (0-1); EOSINOPHILS % (AUTO) 0 % (0-6); HEMATOCRIT 27.2 % (35.0-45.0); HEMOGLOBIN 8.8 g/dl (12.0-16.0); LYMPHOCYTES # (AUTO) 1.3 X10'3 (1.1-4.8); LYMPHOCYTES % (AUTO) 11.9 % (21-51); MEAN CORPUSCULAR HEMOGLOBIN 33.8 PG (27.0-31.0); MEAN CORPUSCULAR HGB CONC 32.4 g/dL (33.0-36.5); MEAN CORPUSCULAR VOLUME 104.3 FL (78-98); MEAN PLATELET VOLUME 8.9 FL (7.4-10.4); MONOCYTES # (AUTO) 0.8 X10'3 (0-0.9); MONOCYTES % (AUTO) 6.7 % (2-12); NEUTROPHILS # (AUTO) 9.2 X10'3 (1.8-7.7); NEUTROPHILS % (AUTO) 81.3 % (42-75); PLATELET COUNT 183 X10'3 (140-440); RED BLOOD COUNT 2.61 X10'6 (4.20-5.60); RED CELL DISTRIBUTION WIDTH 20.5 % (11.5-14.5); WHITE BLOOD COUNT 11.3 X10'3 (4.5-11.0)
[2022-04-14] MEDS: gabapentin 400mg capsule PO SCH ×2 (07:35→19:46)
[2022-04-14] MEDS: montelukast 10mg tablet PO SCH (07:35)
[2022-04-14] MEDS: cefTRIAXone 1g/NS 100ml IVPB IV SCH (07:35)
[2022-04-14] MEDS: carVEDilol 3.125mg tablet PO SCH ×2 (07:35→19:46)
[2022-04-14] MEDS: pantoprazole 40mg Tablet.DR PO SCH (07:35)
[2022-04-14] MEDS: apixaban 2.5mg tablet PO SCH ×2 (07:35→19:46)
[2022-04-14] MEDS ORDERED: predniSONE 20 mg tablet PO SCH (08:00)
[2022-04-14] MEDS: K and/or MAG REPLACEMENT MC SCH ×4 (08:00→20:00)
[2022-04-14 08:56] LABS: ALANINE AMINOTRANSFERASE 35 U/L (12-78); ALBUMIN 2.3 G/DL (3.4-5.0); ALBUMIN/GLOBULIN RATIO 0.9 (1.1-1.5); ALKALINE PHOSPHATASE 55 IU/L (46-116); ANION GAP 7 (8-16); ASPARTATE AMINO TRANSFERASE 24 U/L (10-37); BILIRUBIN,TOTAL 0.5 MG/DL (0.1-1.0); BLOOD UREA NITROGEN 14 MG/DL (7-18); BUN/CREATININE RATIO 16.7 (6.6-38.0); CALCIUM 7.6 MG/DL (8.5-10.1); CHLORIDE 110 MMOL/L (99-107); CREATININE 0.84 MG/DL (0.40-0.90); GLUCOSE 92 MG/DL (70-104); POTASSIUM 3.5 MMOL/L (3.5-5.1); SODIUM 146 MMOL/L (135-145); TOTAL CARBON DIOXIDE 29.2 MMOL/L (24-32); TOTAL PROTEIN 4.9 G/DL (6.4-8.2); eGFR 66 ML/MIN
[2022-04-14] MEDS: normal saline 1000ml 1,000 ML IV SCH ×2 (09:15→19:46)
--- NOTE | 2022-04-14 09:43 | NUR ---
PROVIDER NOTIFIED OF CRITICAL LAB RESULT: LACTIC ACID 5.7.
[2022-04-14] MEDS: thiamine 100mg/ml 2ml inj. IV SCH (12:45)
--- NOTE | 2022-04-14 18:46 | NUR ---
Problems reprioritized. Patient report given, questions answered & plan of care reviewed with FISH ROMERO.
[2022-04-14] MEDS: DOXYCYCLINE 100MG CAPSULE PO SCH (19:49)
[2022-04-15] VITALS (8 sets, daily range): BP systolic 116–172; BP diastolic 56–79
[2022-04-15] MEDS: HYDROcodone/acetaminophen 5mg/325mg tablet PO PRN ×4 (01:23→17:37)
--- NOTE | 2022-04-15 05:05 | NUR ---
0500: Pt BP read 165/72, P-66. IV hydralazine administered by asbestos workerFISH Rice. Will continue to monitor pt.
[2022-04-15] MEDS: normal saline 1000ml 1,000 ML IV SCH ×2 (06:08→15:50)
--- NOTE | 2022-04-15 06:35 | NUR ---
RN went to pt room to check on her and re-check her BP and read 42/23. RN re-checked BP to be sure of reading and was still getting low reading. Called rapid and gave bolus NS total 250ml. Pt was placed in Trendelenburg position. O2 at this time was 90 on R/A. BP reading increased to 76/34, then 158/65 with a pulse of 78. O2-95 on RA. Pt voiced she is feeling better now. Call light within reach. Report given to on-coming FISH Rebolledo and asked to continue monitoring pt. Staff presents was Fahad team Evon/FISH Strauss RN Addendum: 04/15/22 at 702 by Evon Miner RN 0700: Dr Rosa morales. Addendum: 04/15/22 at 07 by Evon Miner RN Blood sugar was 84
[2022-04-15 06:40] LABS: BASOPHILS % (AUTO) 0.2 % (0-1); EOSINOPHILS % (AUTO) 0.3 % (0-6); HEMATOCRIT 33.4 % (35.0-45.0); LYMPHOCYTES # (AUTO) 2.1 X10'3 (1.1-4.8); LYMPHOCYTES % (AUTO) 16.6 % (21-51); MEAN CORPUSCULAR HGB CONC 32.9 g/dL (33.0-36.5); MEAN CORPUSCULAR VOLUME 103.4 FL (78-98); MEAN PLATELET VOLUME 9.3 FL (7.4-10.4); MONOCYTES # (AUTO) 0.9 X10'3 (0-0.9); MONOCYTES % (AUTO) 7.4 % (2-12); NEUTROPHILS # (AUTO) 9.6 X10'3 (1.8-7.7); NEUTROPHILS % (AUTO) 75.5 % (42-75); PLATELET COUNT 232 X10'3 (140-440); RED BLOOD COUNT 3.23 X10'6 (4.20-5.60); RED CELL DISTRIBUTION WIDTH 20.1 % (11.5-14.5); WHITE BLOOD COUNT 12.7 X10'3 (4.5-11.0)
[2022-04-15 06:45] LABS: ALANINE AMINOTRANSFERASE 35 U/L (12-78); ALBUMIN 2.4 G/DL (3.4-5.0); ALKALINE PHOSPHATASE 56 IU/L (46-116); ANION GAP 8 (8-16); ASPARTATE AMINO TRANSFERASE 27 U/L (10-37); BILIRUBIN,TOTAL 0.5 MG/DL (0.1-1.0); BLOOD UREA NITROGEN 9 MG/DL (7-18); BUN/CREATININE RATIO 11.5 (6.6-38.0); CALCIUM 7.6 MG/DL (8.5-10.1); CHLORIDE 111 MMOL/L (99-107); CREATININE 0.78 MG/DL (0.40-0.90); GLUCOSE 80 MG/DL (70-104); POTASSIUM 3.2 MMOL/L (3.5-5.1); SODIUM 147 MMOL/L (135-145); TOTAL CARBON DIOXIDE 28.2 MMOL/L (24-32); TOTAL PROTEIN 4.9 G/DL (6.4-8.2); eGFR 72 ML/MIN
--- NOTE | 2022-04-15 07:10 | NUR ---
Problems reprioritized. Patient report given,FISH Rebolledo, questions answered & plan of care reviewed with .
--- NOTE | 2022-04-15 07:31 | NUR ---
Patient in room PCU 3018. I have received report from FISH ROMERO, and had the opportunity to ask questions and assume patient care.
[2022-04-15] MEDS: K and/or MAG REPLACEMENT MC SCH ×4 (08:00→20:15)
[2022-04-15] MEDS: CefTRIAXone 2gm/NS 100ml IVPB 100 ML IV SCH (08:28)
[2022-04-15] MEDS: thiamine 100mg/ml 2ml inj. IV SCH (08:29)
[2022-04-15] MEDS: carVEDilol 3.125mg tablet PO SCH ×2 (08:30→20:06)
[2022-04-15] MEDS: pantoprazole 40mg Tablet.DR PO SCH (08:30)
[2022-04-15] MEDS: DOXYCYCLINE 100MG CAPSULE PO SCH ×2 (08:30→17:36)
[2022-04-15] MEDS: montelukast 10mg tablet PO SCH (08:30)
[2022-04-15] MEDS: apixaban 2.5mg tablet PO SCH ×2 (08:30→20:05)
[2022-04-15] MEDS: gabapentin 400mg capsule PO SCH ×2 (08:31→20:05)
--- NOTE | 2022-04-15 09:32 | NUR ---
PAGE SENT Message: [id number], ERNIE LIMA, CRITICAL LAB: LACTIC ACID - 6.7. PREVIOUS LA - 3.5. THANK YOU, MEÑO [id number]
[2022-04-15] MEDS: potassium Cl 20 mEq SR tablet PO PRN ×3 (10:32→20:15)
--- NOTE | 2022-04-15 11:44 | NUR ---
Malnutrition consult: Pt reports 14-23 lb wt loss with decreased appetite per malnutrition risk screen with RN. Attempted visit with pt at bedside however pt sleeping and did not wake with verbal cues. No evident visual muscle or fat wasting noted upon visit. Current documented wt is not scaled and possibly lower than ABW based on patient's appearance. Pt with no documented significant decrease in muscle strength or edema. Pt currently on a regular diet and eating fair with mostly 50% PO intake though recently up to 75% PO intake. Pt currently lacks a minimum of two criteria for malnutrition. RD contact information was placed at patient's bedside. Will remain available. Addendum: 04/15/22 at [address] Amended: Links added.
[2022-04-15] MEDS ORDERED: VANCOMYCIN LEVEL IV ONE (18:30)
--- NOTE | 2022-04-15 19:06 | NUR ---
Problems reprioritized. Patient report given, questions answered & plan of care reviewed with FISH ROMERO.
--- NOTE | 2022-04-15 20:16 | NUR ---
Last potassium replacement administered and completed per protocol. Potassium was 3.3.
[2022-04-16] VITALS (8 sets, daily range): BP systolic 94–154; BP diastolic 58–74
[2022-04-16] MEDS: HYDROcodone/acetaminophen 5mg/325mg tablet PO PRN ×5 (00:03→21:32)
[2022-04-16] MEDS: normal saline 1000ml 1,000 ML IV SCH ×3 (02:13→21:15)
[2022-04-16 06:36] LABS: BASOPHILS % (AUTO) 0.2 % (0-1); EOSINOPHILS # (AUTO) 0.1 X10'3 (0-0.9); EOSINOPHILS % (AUTO) 0.7 % (0-6); HEMATOCRIT 31.1 % (35.0-45.0); HEMOGLOBIN 10.3 g/dl (12.0-16.0); LYMPHOCYTES # (AUTO) 1.3 X10'3 (1.1-4.8); MEAN CORPUSCULAR HEMOGLOBIN 34.2 PG (27.0-31.0); MEAN CORPUSCULAR HGB CONC 33.1 g/dL (33.0-36.5); MEAN CORPUSCULAR VOLUME 103.3 FL (78-98); MEAN PLATELET VOLUME 9.1 FL (7.4-10.4); MONOCYTES # (AUTO) 0.8 X10'3 (0-0.9); NEUTROPHILS # (AUTO) 8.1 X10'3 (1.8-7.7); NEUTROPHILS % (AUTO) 78.1 % (42-75); PLATELET COUNT 212 X10'3 (140-440); RED BLOOD COUNT 3.01 X10'6 (4.20-5.60); RED CELL DISTRIBUTION WIDTH 20.1 % (11.5-14.5); WHITE BLOOD COUNT 10.3 X10'3 (4.5-11.0)
--- NOTE | 2022-04-16 06:56 | NUR ---
Problems reprioritized. Patient report given, FISH Agee, questions answered & plan of care reviewed with .
[2022-04-16 06:57] LABS: ALANINE AMINOTRANSFERASE 34 U/L (12-78); ALBUMIN 2.1 G/DL (3.4-5.0); ALBUMIN/GLOBULIN RATIO 0.8 (1.1-1.5); ALKALINE PHOSPHATASE 50 IU/L (46-116); ANION GAP 4 (8-16); ASPARTATE AMINO TRANSFERASE 21 U/L (10-37); BILIRUBIN,TOTAL 0.5 MG/DL (0.1-1.0); BLOOD UREA NITROGEN 8 MG/DL (7-18); BUN/CREATININE RATIO 9.1 (6.6-38.0); C-REACTIVE PROTEIN 2.42 MG/DL (0.0-0.5); CALCIUM 7.6 MG/DL (8.5-10.1); CHLORIDE 110 MMOL/L (99-107); CREATININE 0.88 MG/DL (0.40-0.90); GLUCOSE 100 MG/DL (70-104); MAGNESIUM 1.5 MG/DL (1.5-2.4); PHOSPHORUS 3.4 MG/DL (2.3-4.5); POTASSIUM 3.6 MMOL/L (3.5-5.1); SODIUM 143 MMOL/L (135-145); TOTAL CARBON DIOXIDE 29.1 MMOL/L (24-32); TOTAL PROTEIN 4.6 G/DL (6.4-8.2); eGFR 63 ML/MIN
[2022-04-16 06:58] LABS: ANISOCYTOSIS 3+; HYPOCHROMASIA 1+; PLATELET ESTIMATE NORMAL; POLYCHROMASIA FEW; STOMATOCYTES 1+; TEAR DROP CELLS FEW
[2022-04-16 07:08] LABS: LACTIC,2HR 2.8 MMOL/L (0.4-2.0)
[2022-04-16] MEDS: pantoprazole 40mg Tablet.DR PO SCH (07:30)
--- NOTE | 2022-04-16 07:52 | NUR ---
Patient in room PCU 3018. I have received report from FISH ROMERO, and had the opportunity to ask questions and assume patient care.
[2022-04-16] MEDS: K and/or MAG REPLACEMENT MC SCH ×4 (08:00→19:07)
[2022-04-16] MEDS: thiamine 100mg/ml 2ml inj. IV SCH (08:00)
[2022-04-16] MEDS: apixaban 5mg tablet PO SCH ×2 (08:00→19:34)
[2022-04-16] MEDS: montelukast 10mg tablet PO SCH (08:00)
[2022-04-16] MEDS: gabapentin 400mg capsule PO SCH ×2 (08:00→19:34)
[2022-04-16] MEDS: CefTRIAXone 2gm/NS 100ml IVPB 100 ML IV SCH (08:00)
[2022-04-16] MEDS: carVEDilol 3.125mg tablet PO SCH ×2 (08:00→19:34)
--- NOTE | 2022-04-16 19:11 | NUR ---
Problems reprioritized. Patient report given, questions answered & plan of care reviewed with FISH ROMERO.
[2022-04-17] VITALS (8 sets, daily range): BP systolic 120–169; BP diastolic 66–84
[2022-04-17] MEDS: HYDROcodone/acetaminophen 5mg/325mg tablet PO PRN ×3 (02:54→19:31)
--- NOTE | 2022-04-17 06:36 | NUR ---
Problems reprioritized. Patient report given,FISH Conway, questions answered & plan of care reviewed with
[2022-04-17 07:21] LABS: BASOPHILS % (AUTO) 0.4 % (0-1); EOSINOPHILS # (AUTO) 0.1 X10'3 (0-0.9); EOSINOPHILS % (AUTO) 0.9 % (0-6); HEMATOCRIT 31.6 % (35.0-45.0); HEMOGLOBIN 10.2 g/dl (12.0-16.0); LYMPHOCYTES # (AUTO) 1.3 X10'3 (1.1-4.8); LYMPHOCYTES % (AUTO) 13.4 % (21-51); MEAN CORPUSCULAR HEMOGLOBIN 33.3 PG (27.0-31.0); MEAN CORPUSCULAR HGB CONC 32.3 g/dL (33.0-36.5); MEAN CORPUSCULAR VOLUME 103.1 FL (78-98); MEAN PLATELET VOLUME 9.6 FL (7.4-10.4); MONOCYTES # (AUTO) 0.7 X10'3 (0-0.9); MONOCYTES % (AUTO) 7.6 % (2-12); NEUTROPHILS # (AUTO) 7.3 X10'3 (1.8-7.7); NEUTROPHILS % (AUTO) 77.7 % (42-75); PLATELET COUNT 225 X10'3 (140-440); RED BLOOD COUNT 3.06 X10'6 (4.20-5.60); RED CELL DISTRIBUTION WIDTH 20.3 % (11.5-14.5); WHITE BLOOD COUNT 9.5 X10'3 (4.5-11.0)
[2022-04-17 07:51] LABS: ALANINE AMINOTRANSFERASE 30 U/L (12-78); ALBUMIN 2.2 G/DL (3.4-5.0); ALBUMIN/GLOBULIN RATIO 0.8 (1.1-1.5); ALKALINE PHOSPHATASE 51 IU/L (46-116); ANION GAP 8 (8-16); ASPARTATE AMINO TRANSFERASE 18 U/L (10-37); BILIRUBIN,TOTAL 0.5 MG/DL (0.1-1.0); BLOOD UREA NITROGEN 6 MG/DL (7-18); BUN/CREATININE RATIO 7.1 (6.6-38.0); C-REACTIVE PROTEIN 2.87 MG/DL (0.0-0.5); CALCIUM 7.7 MG/DL (8.5-10.1); CHLORIDE 111 MMOL/L (99-107); CREATININE 0.85 MG/DL (0.40-0.90); GLUCOSE 92 MG/DL (70-104); MAGNESIUM 1.5 MG/DL (1.5-2.4); PHOSPHORUS 4.2 MG/DL (2.3-4.5); POTASSIUM 3.8 MMOL/L (3.5-5.1); SODIUM 148 MMOL/L (135-145); TOTAL CARBON DIOXIDE 29.4 MMOL/L (24-32); eGFR 66 ML/MIN
[2022-04-17] MEDS: K and/or MAG REPLACEMENT MC SCH ×4 (08:00→19:31)
[2022-04-17] MEDS: normal saline 1000ml 1,000 ML IV SCH ×2 (08:25→17:15)
[2022-04-17] MEDS: CefTRIAXone 2gm/NS 100ml IVPB 100 ML IV SCH (08:26)
[2022-04-17] MEDS: carVEDilol 3.125mg tablet PO SCH ×2 (08:27→19:30)
[2022-04-17] MEDS: gabapentin 400mg capsule PO SCH ×2 (08:27→19:30)
[2022-04-17] MEDS: apixaban 5mg tablet PO SCH ×2 (08:27→19:30)
[2022-04-17] MEDS: pantoprazole 40mg Tablet.DR PO SCH (08:27)
[2022-04-17] MEDS: montelukast 10mg tablet PO SCH (08:27)
[2022-04-17] MEDS: traMADol 50MG tablet PO PRN (08:28)
[2022-04-17] MEDS: thiamine 100mg/ml 2ml inj. IV SCH (08:28)
[2022-04-17] MEDS: nystatin 15 GM powder TP SCH ×2 (13:00→23:08)
--- NOTE | 2022-04-17 18:27 | NUR ---
Pt is able to repositions herself throughout shift. Hourly rounding have been performed and patients' needs have been met.
[2022-04-17] MEDS: dextrose 5%-water 1,000 ML IV SCH (19:05)
[2022-04-18 02:00] VITALS: BP 153/81
[2022-04-18] MEDS: HYDROcodone/acetaminophen 5mg/325mg tablet PO PRN ×4 (03:09→20:24)
--- NOTE | 2022-04-18 06:26 | NUR ---
change of shift report given to FISH Moctezuma. pt stable. no acute complaints. questions answered
[2022-04-18 07:00] VITALS: BP 144/70
[2022-04-18] MEDS: dextrose 5%-water 1,000 ML IV SCH ×2 (07:20→08:25)
[2022-04-18 07:44] LABS: BASOPHILS % (AUTO) 0.3 % (0-1); EOSINOPHILS # (AUTO) 0.1 X10'3 (0-0.9); EOSINOPHILS % (AUTO) 1.3 % (0-6); HEMATOCRIT 29.8 % (35.0-45.0); HEMOGLOBIN 9.6 g/dl (12.0-16.0); LYMPHOCYTES # (AUTO) 1.2 X10'3 (1.1-4.8); LYMPHOCYTES % (AUTO) 14.3 % (21-51); MEAN CORPUSCULAR HEMOGLOBIN 33.2 PG (27.0-31.0); MEAN CORPUSCULAR HGB CONC 32.3 g/dL (33.0-36.5); MEAN CORPUSCULAR VOLUME 102.9 FL (78-98); MEAN PLATELET VOLUME 9.4 FL (7.4-10.4); MONOCYTES # (AUTO) 0.7 X10'3 (0-0.9); MONOCYTES % (AUTO) 8.4 % (2-12); NEUTROPHILS # (AUTO) 6.3 X10'3 (1.8-7.7); NEUTROPHILS % (AUTO) 75.7 % (42-75); PLATELET COUNT 241 X10'3 (140-440); WHITE BLOOD COUNT 8.4 X10'3 (4.5-11.0)
--- NOTE | 2022-04-18 07:52 | NUR ---
Patient in room PCU 3018. I have received report from April WHITTEN and had the opportunity to ask questions and assume patient care.
[2022-04-18] MEDS: K and/or MAG REPLACEMENT MC SCH ×3 (08:00→20:00)
[2022-04-18 08:07] LABS: ALANINE AMINOTRANSFERASE 25 U/L (12-78); ALBUMIN 2.1 G/DL (3.4-5.0); ALBUMIN/GLOBULIN RATIO 0.8 (1.1-1.5); ALKALINE PHOSPHATASE 48 IU/L (46-116); ANION GAP 6 (8-16); ASPARTATE AMINO TRANSFERASE 16 U/L (10-37); BILIRUBIN,TOTAL 0.4 MG/DL (0.1-1.0); BLOOD UREA NITROGEN 4 MG/DL (7-18); C-REACTIVE PROTEIN 2.69 MG/DL (0.0-0.5); CALCIUM 8.1 MG/DL (8.5-10.1); CHLORIDE 110 MMOL/L (99-107); GLUCOSE 104 MG/DL (70-104); MAGNESIUM 1.7 MG/DL (1.5-2.4); PHOSPHORUS 4.4 MG/DL (2.3-4.5); POTASSIUM 3.7 MMOL/L (3.5-5.1); SODIUM 147 MMOL/L (135-145); TOTAL CARBON DIOXIDE 30.8 MMOL/L (24-32); TOTAL PROTEIN 4.8 G/DL (6.4-8.2); eGFR 70 ML/MIN
[2022-04-18 08:22] LABS: HEMOGLOBIN A1C 5.5 % (4.5-6.2)
[2022-04-18] MEDS: CefTRIAXone 2gm/NS 100ml IVPB 100 ML IV SCH (08:49)
[2022-04-18] MEDS: pantoprazole 40mg Tablet.DR PO SCH (08:49)
[2022-04-18] MEDS: apixaban 5mg tablet PO SCH ×2 (08:49→20:24)
[2022-04-18] MEDS: carVEDilol 3.125mg tablet PO SCH ×2 (08:49→20:24)
[2022-04-18] MEDS: montelukast 10mg tablet PO SCH (08:49)
[2022-04-18] MEDS: thiamine 100mg/ml 2ml inj. IV SCH (08:49)
[2022-04-18] MEDS: gabapentin 400mg capsule PO SCH ×2 (08:49→20:24)
[2022-04-18] MEDS: nystatin 15 GM powder TP SCH ×3 (08:57→21:00)
--- NOTE | 2022-04-18 09:08 | NUR ---
Reassessment: Noted that a rapid was called 04/15. Pt now also documented w/ sepsis. Continues on Regular diet w/ 50-75% intake of meals while receiving smoothies WL, likely close to meeting est nutrient needs at this time. Pt also receiving D5 at 75ml/hr providing 306kcals/day. LBM 04/17. No new nutrition intervention implemented at this time, will continue to monitor. Recs: 1. Continue Regular diet as tolerated 2. Smoothie WL 3. Bowel care per rx 4. Scaled wts Addendum: 04/18/22 at [address] Amended: Links added.
[2022-04-18 10:17] LABS: PLATELET ESTIMATE NORMAL
[2022-04-18 10:18] LABS: ANISOCYTOSIS 2+; HYPOCHROMASIA 1+; POLYCHROMASIA FEW; STOMATOCYTES 2+; TARGET CELLS FEW; TEAR DROP CELLS 1+
[2022-04-18 11:00] VITALS: BP 110/57
[2022-04-18 15:00] VITALS: BP 101/56
[2022-04-19] MEDS: HYDROcodone/acetaminophen 5mg/325mg tablet PO PRN ×4 (02:05→20:28)
[2022-04-19 06:53] LABS: BASOPHILS # (AUTO) 0.1 X10'3 (0-0.2); BASOPHILS % (AUTO) 0.8 % (0-1); EOSINOPHILS # (AUTO) 0.1 X10'3 (0-0.9); EOSINOPHILS % (AUTO) 1.4 % (0-6); HEMATOCRIT 27.5 % (35.0-45.0); LYMPHOCYTES # (AUTO) 1.4 X10'3 (1.1-4.8); LYMPHOCYTES % (AUTO) 19.7 % (21-51); MEAN CORPUSCULAR HEMOGLOBIN 33.9 PG (27.0-31.0); MEAN CORPUSCULAR HGB CONC 32.7 g/dL (33.0-36.5); MEAN CORPUSCULAR VOLUME 103.5 FL (78-98); MEAN PLATELET VOLUME 9.2 FL (7.4-10.4); MONOCYTES # (AUTO) 0.8 X10'3 (0-0.9); MONOCYTES % (AUTO) 10.4 % (2-12); NEUTROPHILS # (AUTO) 4.9 X10'3 (1.8-7.7); NEUTROPHILS % (AUTO) 67.7 % (42-75); PLATELET COUNT 228 X10'3 (140-440); RED BLOOD COUNT 2.66 X10'6 (4.20-5.60); RED CELL DISTRIBUTION WIDTH 20.2 % (11.5-14.5); WHITE BLOOD COUNT 7.3 X10'3 (4.5-11.0)
[2022-04-19 07:00] VITALS: BP 140/61
[2022-04-19 07:19] LABS: ALANINE AMINOTRANSFERASE 20 U/L (12-78); ALBUMIN/GLOBULIN RATIO 0.7 (1.1-1.5); ALKALINE PHOSPHATASE 46 IU/L (46-116); ANION GAP 5 (8-16); ASPARTATE AMINO TRANSFERASE 18 U/L (10-37); BILIRUBIN,TOTAL 0.3 MG/DL (0.1-1.0); BLOOD UREA NITROGEN 3 MG/DL (7-18); BUN/CREATININE RATIO 3.4 (6.6-38.0); C-REACTIVE PROTEIN 1.96 MG/DL (0.0-0.5); CALCIUM 7.8 MG/DL (8.5-10.1); CHLORIDE 108 MMOL/L (99-107); CREATININE 0.89 MG/DL (0.40-0.90); GLUCOSE 96 MG/DL (70-104); MAGNESIUM 1.6 MG/DL (1.5-2.4); PHOSPHORUS 4.3 MG/DL (2.3-4.5); POTASSIUM 3.3 MMOL/L (3.5-5.1); SODIUM 143 MMOL/L (135-145); TOTAL CARBON DIOXIDE 29.8 MMOL/L (24-32); TOTAL PROTEIN 4.8 G/DL (6.4-8.2); eGFR 62 ML/MIN
[2022-04-19] MEDS: K and/or MAG REPLACEMENT MC SCH ×2 (08:00→20:00)
[2022-04-19] MEDS: CefTRIAXone 2gm/NS 100ml IVPB 100 ML IV SCH (08:33)
[2022-04-19] MEDS: gabapentin 400mg capsule PO SCH ×2 (08:33→20:28)
[2022-04-19] MEDS: carVEDilol 3.125mg tablet PO SCH ×2 (08:33→20:28)
[2022-04-19] MEDS: apixaban 5mg tablet PO SCH ×2 (08:34→20:28)
[2022-04-19] MEDS: montelukast 10mg tablet PO SCH (08:34)
[2022-04-19] MEDS: thiamine 100mg/ml 2ml inj. IV SCH (08:34)
[2022-04-19] MEDS: nystatin 15 GM powder TP SCH ×3 (08:34→21:00)
[2022-04-19] MEDS: pantoprazole 40mg Tablet.DR PO SCH (08:34)
[2022-04-19 09:20] LABS: ANISOCYTOSIS 3+; PLATELET ESTIMATE NORMAL
[2022-04-19 11:00] VITALS: BP 126/47
[2022-04-19] MEDS: potassium Cl 20 mEq SR tablet PO PRN (11:03)
[2022-04-19] MEDS: dextrose 5%-water 1,000 ML IV SCH (11:17)
[2022-04-19 15:00] VITALS: BP 131/50
[2022-04-19 18:00] VITALS: BP 102/51
[2022-04-19 20:35] VITALS: BP 136/63
[2022-04-19 22:30] VITALS: BP 115/52
[2022-04-20] MEDS: potassium Cl 20 mEq SR tablet PO PRN (01:17)
[2022-04-20] MEDS: dextrose 5%-water 1,000 ML IV SCH (01:22)
[2022-04-20 02:00] VITALS: BP 143/94
--- NOTE | 2022-04-20 06:15 | NUR ---
Patient in room PCU 3018. I have received report from Martinez WHITTEN and had the opportunity to ask questions and assume patient care. Addendum: 04/20/22 at 0643 by Rhianna Perea RN Hazel WHITTEN, adalid Henriquez
[2022-04-20 06:47] LABS: BASOPHILS # (AUTO) 0.1 X10'3 (0-0.2); BASOPHILS % (AUTO) 0.9 % (0-1); EOSINOPHILS # (AUTO) 0.1 X10'3 (0-0.9); EOSINOPHILS % (AUTO) 1.6 % (0-6); HEMATOCRIT 28.8 % (35.0-45.0); HEMOGLOBIN 9.3 g/dl (12.0-16.0); LYMPHOCYTES # (AUTO) 1.5 X10'3 (1.1-4.8); LYMPHOCYTES % (AUTO) 24.4 % (21-51); MEAN CORPUSCULAR HEMOGLOBIN 33.9 PG (27.0-31.0); MEAN CORPUSCULAR HGB CONC 32.2 g/dL (33.0-36.5); MEAN CORPUSCULAR VOLUME 105.3 FL (78-98); MEAN PLATELET VOLUME 9.4 FL (7.4-10.4); MONOCYTES # (AUTO) 0.6 X10'3 (0-0.9); MONOCYTES % (AUTO) 10.5 % (2-12); NEUTROPHILS # (AUTO) 3.8 X10'3 (1.8-7.7); NEUTROPHILS % (AUTO) 62.6 % (42-75); PLATELET COUNT 239 X10'3 (140-440); RED BLOOD COUNT 2.73 X10'6 (4.20-5.60); RED CELL DISTRIBUTION WIDTH 19.6 % (11.5-14.5); WHITE BLOOD COUNT 6.1 X10'3 (4.5-11.0)
[2022-04-20 07:00] VITALS: BP 137/66
[2022-04-20 07:00] LABS: ALANINE AMINOTRANSFERASE 20 U/L (12-78); ALBUMIN 2.1 G/DL (3.4-5.0); ALBUMIN/GLOBULIN RATIO 0.7 (1.1-1.5); ALKALINE PHOSPHATASE 47 IU/L (46-116); ANION GAP 3 (8-16); ASPARTATE AMINO TRANSFERASE 15 U/L (10-37); BILIRUBIN,TOTAL 0.3 MG/DL (0.1-1.0); BLOOD UREA NITROGEN 3 MG/DL (7-18); BUN/CREATININE RATIO 3.4 (6.6-38.0); C-REACTIVE PROTEIN 1.35 MG/DL (0.0-0.5); CALCIUM 7.8 MG/DL (8.5-10.1); CHLORIDE 112 MMOL/L (99-107); CREATININE 0.88 MG/DL (0.40-0.90); GLUCOSE 90 MG/DL (70-104); MAGNESIUM 1.6 MG/DL (1.5-2.4); PHOSPHORUS 4.1 MG/DL (2.3-4.5); POTASSIUM 4.2 MMOL/L (3.5-5.1); SODIUM 144 MMOL/L (135-145); eGFR 63 ML/MIN
[2022-04-20] MEDS: carVEDilol 3.125mg tablet PO SCH (07:21)
[2022-04-20] MEDS: pantoprazole 40mg Tablet.DR PO SCH (07:21)
[2022-04-20] MEDS: HYDROcodone/acetaminophen 5mg/325mg tablet PO PRN ×2 (07:21→13:58)
[2022-04-20] MEDS: thiamine 100mg/ml 2ml inj. IV SCH (07:21)
[2022-04-20] MEDS: montelukast 10mg tablet PO SCH (07:21)
[2022-04-20] MEDS: gabapentin 400mg capsule PO SCH (07:21)
[2022-04-20] MEDS: apixaban 5mg tablet PO SCH (07:22)
[2022-04-20] MEDS: nystatin 15 GM powder TP SCH ×2 (07:22→13:59)
[2022-04-20] MEDS: K and/or MAG REPLACEMENT MC SCH (07:28)
--- NOTE | 2022-04-20 10:00 | NUR ---
Spoke with Dr Awad about plan to discharge patient. He stated that if Dr Oh was okay with the patient going home, he was fine with discharging her. I spoke with Dr Oh who agreed to discharge patient. I notified Dr Awad in person that patient is cleared by Dr Oh to be discharged.
[2022-04-20 11:00] VITALS: BP 140/62
--- NOTE | 2022-04-20 11:48 | NUR ---
Transaction number: [id number] Message: [id number] Viridiana Freeman: I wasn't sure if you were going to put DC order in or if you wanted me to. Just checking. Thanks! [facility] 6504
[2022-04-20] MEDS ORDERED: COR3.125T PO (14:23)
[2022-04-20] MEDS ORDERED: ALBU8.5H17 INH (14:23)
[2022-04-20] MEDS ORDERED: NYSPWD TP (14:23)
[2022-04-20] MEDS ORDERED: APIX5TAB3 PO (14:23)
[2022-04-20] MEDS ORDERED: THIA50TA10 PO (14:23)
[2022-04-20] MEDS ORDERED: MONT-40 PO (14:23)
--- NOTE | 2022-04-20 15:10 | NUR ---
Discharge instructions reviewed, and questions answered. IV removed from left forearm, catheter intact. Belongings packed and i wheeled patient down to lobby and helped her into her sons van. Patient was stable upon discharge from [facility].
== END 2022-04-20 14:55 | disposition home or self-care (01) | DRG 871 ==
LOC: ER 19:38 → ED HOLD 04-08 05:45 → CICU 2S 04-08 07:35 → PCU 3S 04-10 11:26
PROVIDERS: ADMIT Internal Medicine; ATTEND Internal Medicine
PROC: B32T1ZZ Computerized Tomography (CT Scan) of Left Pulmonary Artery using Low Osmolar Contrast (ICD-10-PCS; principal; 2022-04-07)
PROC: B3201ZZ Computerized Tomography (CT Scan) of Thoracic Aorta using Low Osmolar Contrast (ICD-10-PCS; 2022-04-07)
PROC: B32S1ZZ Computerized Tomography (CT Scan) of Right Pulmonary Artery using Low Osmolar Contrast (ICD-10-PCS; 2022-04-07)
PROC: BW251ZZ Computerized Tomography (CT Scan) of Chest, Abdomen and Pelvis using Low Osmolar Contrast (ICD-10-PCS; 2022-04-12)
DX: A41.9 Sepsis, unspecified organism (principal); G93.41 Metabolic encephalopathy; J96.01 Acute respiratory failure with hypoxia; N17.0 Acute kidney failure with tubular necrosis; J18.9 Pneumonia, unspecified organism; J44.1 Chronic obstructive pulmonary disease with (acute) exacerbation; J44.0 Chronic obstructive pulmonary disease with (acute) lower respiratory infection; E87.0 Hyperosmolality and hypernatremia; E46 Unspecified protein-calorie malnutrition; E87.2 Acidosis; E87.3 Alkalosis; E87.1 Hypo-osmolality and hyponatremia; Z20.822 Contact with and (suspected) exposure to COVID-19; N18.30 Chronic kidney disease, stage 3 unspecified; I13.10 Hypertensive heart and chronic kidney disease without heart failure, with stage 1 through stage 4 chronic kidney disease, or unspecified chronic kidney disease; J20.9 Acute bronchitis, unspecified; G62.9 Polyneuropathy, unspecified; R65.20 Severe sepsis without septic shock; K21.9 Gastro-esophageal reflux disease without esophagitis; M54.50 Low back pain, unspecified; M79.652 Pain in left thigh; I48.0 Paroxysmal atrial fibrillation; E88.09 Other disorders of plasma-protein metabolism, not elsewhere classified; G89.29 Other chronic pain; Z87.891 Personal history of nicotine dependence; Z90.710 Acquired absence of both cervix and uterus; Z79.899 Other long term (current) drug therapy; Z68.25 Body mass index [BMI] 25.0-25.9, adult
CPT/HCPCS: 36415; 36600; 71045; 71260; 73501; 74176; 74177; 76700; 80053; 80305; 80320; 81001; 82140; 82803; 82948; 83036; 83605; 83735; 83880; 83935; 84100; 84132; 84133; 84145; 84300; 84443; 84484; 85008; 85018; 85025; 85379; 85610; 86140; 87040; 87635; 93005; 93306; 94640; 94760; 97110; 97116; 97161; 97530; 99291; 99292; C9803; G0378; J0360; J0696; J1644; J2060; J2405; J2543; J2930; J3370; J3411; J3480; J3490; J7030; J7050; J7070; J7120; J7512

== ENCOUNTER 2022-04-22 12:26 | Inpatient (IN) | payer MEDICARE, BC ==
[~2022-04-22] VITALS: Ht 160 cm; Wt 65.9 kg
[~2022-04-22 12:26] MED LIST changes: +ALBU8.5H17 INH; +APIX5TAB3 PO; +COR3.125T PO; -CYCL5TAB14 PEG; +GABA300C PO; +LOSA25TA41 PO; -LOSA25TA96 PO; -MELO-102 PO; +MONT-40 PO; +NYSPWD TP; +OMEP20CA16 PO; +TAMO20TA4 PO; +THIA50TA10 PO
[2022-04-22 13:56] LABS: BASOPHILS # (AUTO) 0.1 X10'3 (0-0.2); BASOPHILS % (AUTO) 0.8 % (0-1); EOSINOPHILS % (AUTO) 0.1 % (0-6); HEMATOCRIT 32.3 % (35.0-45.0); HEMOGLOBIN 10.5 g/dl (12.0-16.0); LYMPHOCYTES % (AUTO) 13.2 % (21-51); MEAN CORPUSCULAR HEMOGLOBIN 33.1 PG (27.0-31.0); MEAN CORPUSCULAR HGB CONC 32.5 g/dL (33.0-36.5); MEAN CORPUSCULAR VOLUME 101.8 FL (78-98); MEAN PLATELET VOLUME 8.3 FL (7.4-10.4); MONOCYTES # (AUTO) 0.6 X10'3 (0-0.9); MONOCYTES % (AUTO) 7.9 % (2-12); NEUTROPHILS # (AUTO) 5.7 X10'3 (1.8-7.7); PLATELET COUNT 365 X10'3 (140-440); RED BLOOD COUNT 3.17 X10'6 (4.20-5.60); RED CELL DISTRIBUTION WIDTH 18.7 % (11.5-14.5); WHITE BLOOD COUNT 7.3 X10'3 (4.5-11.0)
[2022-04-22 14:14] LABS: ALANINE AMINOTRANSFERASE 21 U/L (12-78); ALBUMIN 2.9 G/DL (3.4-5.0); ALBUMIN/GLOBULIN RATIO 0.9 (1.1-1.5); ALKALINE PHOSPHATASE 56 IU/L (46-116); ANION GAP 14 (8-16); ASPARTATE AMINO TRANSFERASE 14 U/L (10-37); BILIRUBIN,TOTAL 0.6 MG/DL (0.1-1.0); BLOOD UREA NITROGEN 8 MG/DL (7-18); BUN/CREATININE RATIO 8.5 (6.6-38.0); CALCIUM 8.4 MG/DL (8.5-10.1); CHLORIDE 106 MMOL/L (99-107); CREATININE 0.94 MG/DL (0.40-0.90); GLUCOSE 83 MG/DL (70-104); PLATELET ESTIMATE NORMAL; POTASSIUM 3.6 MMOL/L (3.5-5.1); SODIUM 143 MMOL/L (135-145); TOTAL CARBON DIOXIDE 23.2 MMOL/L (24-32); TOTAL PROTEIN 6.3 G/DL (6.4-8.2); eGFR 58 ML/MIN
[2022-04-22 14:15] LABS: ANISOCYTOSIS 2+; LARGE PLATELETS FEW; SCHISTOCYTES FEW
[2022-04-22 14:16] LABS: STOMATOCYTES 1+
[2022-04-22 14:53] LABS: MAGNESIUM 1.8 MG/DL (1.5-2.4)
[2022-04-22 16:07] LABS: CLARITY,URINE CLEAR (Clear); COLOR,URINE YELLOW (Yellow); GLUCOSE, URINE NEGATIVE (Neg); KETONES,URINE 15 mg/dl (Neg); LEUKOCYTE ESTERASE ,URINE NEGATIVE (Neg); NITRITES, URINE NEGATIVE (Neg); OCCULT BLOOD,URINE NEGATIVE (Neg); PROTEIN,URINE TRACE mg/dl (Neg); UROBILINOGEN,URINE 0.2 E.U/dL (0.2-1.0)
[2022-04-22 16:11] LABS: UA COLLECTION TYPE STRAIGHT CATH
[2022-04-22 16:17] LABS: HYALINE CASTS 0-3 /LPF (NEGATIVE); MUCUS STRANDS FEW /LPF (Neg); SQUAMOUS EPITHELIAL CELL,UR FEW /LPF (FEW); TRANSITIONAL EPI CELLS,URINE FEW /HPF
[2022-04-22 16:18] LABS: BACTERIA,URINE FEW /HPF (Neg); RBC,URINE 0-2 /HPF (0-2)
[2022-04-22 16:19] LABS: WBC,URINE NONE SEEN /HPF (0-4)
[2022-04-22] MEDS ORDERED: albuterol 2.5 MG/3 ML nebule NEB ONE (16:25)
[2022-04-22 16:38] LABS: APTT 25 SECONDS (22-32)
[2022-04-22] MEDS ORDERED: mag hydrox/Alum hydrox/simeth 30ml oral suspension PO PRN (16:40)
[2022-04-22] MEDS ORDERED: ondansetron/PF 4mg/2ml inj IV PRN (16:40)
[2022-04-22] MEDS ORDERED: acetaminophen 325mg tablet PO PRN (16:40)
[2022-04-22] MEDS ORDERED: magnesium hydroxide 30ml (MOM) UD suspension PO PRN (16:40)
[2022-04-22 17:09] LABS: CHOLESTEROL 144 MG/DL (0-200); HDL CHOLESTEROL 71 MG/DL (35-60); LDL CHOLESTEROL 54 MG/DL (50-100); TRIGLYCERIDES 115 MG/DL (20-135)
[2022-04-22] MEDS: normal saline 1000ml 1,000 ML IV SCH (17:36)
[2022-04-22] MEDS ORDERED: WARF3TAB56 PO (18:55)
--- NOTE | 2022-04-22 19:00 | NUR ---
Patient in room ORTHO 4024. I have received report from Sabino WHITTEN ED and had the opportunity to ask questions and assume patient care. Addendum: 04/23/22 at 0629 by Zuleyka Black RN Amended: Links added.
--- NOTE | 2022-04-22 19:30 | NUR ---
Pt. arrived on O/N unit via garney. Pt. A & O to own name, , and place; pt. re-oriented to events. Speech slurred slightly but appropriate communication noted this shift. No c/o headache at this time. Call light within raech and bed in low position. Addendum: 04/23/22 at 0654 by Zuleyka Black RN Amended: Links added.
[2022-04-22] MEDS: docusate sod 100mg capsule PO SCH (20:00)
[2022-04-22] MEDS ORDERED: apixaban 5mg tablet PO SCH (20:00)
[2022-04-22 20:30] VITALS: BP 138/58
[2022-04-22] MEDS: HYDROcodone/acetaminophen 5mg/325mg tablet PO PRN (23:31)
[2022-04-23] MEDS: normal saline 1000ml 1,000 ML IV SCH ×2 (04:12→15:10)
[2022-04-23] MEDS: HYDROcodone/acetaminophen 5mg/325mg tablet PO PRN ×4 (04:17→23:51)
--- NOTE | 2022-04-23 05:00 | NUR ---
Pt. with c/o pain this shift notified MD and orders received for p.o norco 5/325mg prn q 4 hrs pain- x 2 c/o pain medicated effective. No stroke events this shift. Addendum: 04/23/22 at 0656 by Zuleyka Black RN Amended: Links added.
[2022-04-23 06:00] VITALS: BP 142/71
[2022-04-23 06:17] LABS: BASOPHILS # (AUTO) 0.1 X10'3 (0-0.2); BASOPHILS % (AUTO) 1.2 % (0-1); EOSINOPHILS % (AUTO) 0.6 % (0-6); HEMATOCRIT 29.1 % (35.0-45.0); HEMOGLOBIN 9.4 g/dl (12.0-16.0); LYMPHOCYTES # (AUTO) 1.5 X10'3 (1.1-4.8); LYMPHOCYTES % (AUTO) 30.7 % (21-51); MEAN CORPUSCULAR HEMOGLOBIN 33.2 PG (27.0-31.0); MEAN CORPUSCULAR HGB CONC 32.2 g/dL (33.0-36.5); MEAN PLATELET VOLUME 8.7 FL (7.4-10.4); MONOCYTES # (AUTO) 0.5 X10'3 (0-0.9); MONOCYTES % (AUTO) 9.7 % (2-12); NEUTROPHILS # (AUTO) 2.8 X10'3 (1.8-7.7); NEUTROPHILS % (AUTO) 57.8 % (42-75); PLATELET COUNT 309 X10'3 (140-440); RED BLOOD COUNT 2.82 X10'6 (4.20-5.60); RED CELL DISTRIBUTION WIDTH 19.3 % (11.5-14.5); WHITE BLOOD COUNT 4.9 X10'3 (4.5-11.0)
[2022-04-23 06:28] LABS: ALBUMIN 2.5 G/DL (3.4-5.0); ANION GAP 11 (8-16); BLOOD UREA NITROGEN 9 MG/DL (7-18); BUN/CREATININE RATIO 10.6 (6.6-38.0); CALCIUM 7.9 MG/DL (8.5-10.1); CHLORIDE 112 MMOL/L (99-107); CREATININE 0.85 MG/DL (0.40-0.90); GLUCOSE 71 MG/DL (70-104); POTASSIUM 3.8 MMOL/L (3.5-5.1); SODIUM 145 MMOL/L (135-145); eGFR 66 ML/MIN
--- NOTE | 2022-04-23 06:30 | NUR ---
Problems reprioritized. Patient report given, questions answered & plan of care reviewed with Nathan WHITTEN. Addendum: 04/23/22 at 0657 by Zuleyka Black RN Amended: Links added.
[2022-04-23] MEDS: aspirin 325mg tablet, delayed-release (Ecotrin) PO SCH (07:37)
[2022-04-23] MEDS: docusate sod 100mg capsule PO SCH ×2 (07:37→20:00)
[2022-04-23 09:53] VITALS: BP 107/54
[2022-04-23] MEDS ORDERED: albuterol 2.5 MG/3 ML nebule NEB PRN (12:40)
[2022-04-23] MEDS ORDERED: APIX5TAB3 PO (12:58)
[2022-04-23] MEDS: gabapentin 300mg capsule PO SCH ×2 (13:14→20:17)
[2022-04-23] MEDS: nystatin 15 GM powder TP SCH ×2 (13:15→20:18)
[2022-04-23] MEDS: traMADol 50MG tablet PO SCH ×2 (13:15→20:17)
[2022-04-23 14:00] VITALS: BP 99/49
[2022-04-23] MEDS: carVEDilol 3.125mg tablet PO SCH (17:32)
[2022-04-23 18:00] VITALS: BP 140/66
--- NOTE | 2022-04-23 18:10 | NUR ---
Patient in room ORTHO 4023. I have received report from Nathan WHITTEN and had the opportunity to ask questions and assume patient care. Addendum: 04/23/22 at 1831 by Zuleyka Black RN Amended: Links added.
[2022-04-23] MEDS: apixaban 5mg tablet PO SCH (20:08)
--- NOTE | 2022-04-23 20:19 | NUR ---
Pt. awake alert tpo own name and place. Reoriented pt. to events. Call light within REACH AND BED IN LOW POSITION AT THIS TIME. Addendum: 04/23/22 at 2033 by Zuleyka Black RN Amended: Links added.
[2022-04-23 22:00] VITALS: BP 124/64
[2022-04-24] MEDS: normal saline 1000ml 1,000 ML IV SCH ×2 (00:19→08:40)
[2022-04-24] MEDS: HYDROcodone/acetaminophen 5mg/325mg tablet PO PRN (03:32)
--- NOTE | 2022-04-24 05:00 | NUR ---
c/o pain x 3 to left hip this shift medicated effective. No stroke episodes this shift. Addendum: 04/24/22 at 0716 by Zuleyka Black RN Amended: Links added.
[2022-04-24 05:16] LABS: BASOPHILS # (AUTO) 0.1 X10'3 (0-0.2); BASOPHILS % (AUTO) 1.6 % (0-1); EOSINOPHILS % (AUTO) 1.1 % (0-6); HEMATOCRIT 27.3 % (35.0-45.0); HEMOGLOBIN 8.7 g/dl (12.0-16.0); LYMPHOCYTES # (AUTO) 1.7 X10'3 (1.1-4.8); LYMPHOCYTES % (AUTO) 42.8 % (21-51); MEAN CORPUSCULAR HEMOGLOBIN 33.2 PG (27.0-31.0); MEAN CORPUSCULAR HGB CONC 31.8 g/dL (33.0-36.5); MEAN CORPUSCULAR VOLUME 104.4 FL (78-98); MEAN PLATELET VOLUME 8.4 FL (7.4-10.4); MONOCYTES # (AUTO) 0.4 X10'3 (0-0.9); MONOCYTES % (AUTO) 9.3 % (2-12); NEUTROPHILS # (AUTO) 1.8 X10'3 (1.8-7.7); NEUTROPHILS % (AUTO) 45.2 % (42-75); PLATELET COUNT 277 X10'3 (140-440); RED BLOOD COUNT 2.61 X10'6 (4.20-5.60); RED CELL DISTRIBUTION WIDTH 19.6 % (11.5-14.5); WHITE BLOOD COUNT 4.1 X10'3 (4.5-11.0)
[2022-04-24 05:18] LABS: ALBUMIN 2.3 G/DL (3.4-5.0); ANION GAP 11 (8-16); BLOOD UREA NITROGEN 8 MG/DL (7-18); BUN/CREATININE RATIO 9.4 (6.6-38.0); CALCIUM 7.6 MG/DL (8.5-10.1); CHLORIDE 112 MMOL/L (99-107); CREATININE 0.85 MG/DL (0.40-0.90); GLUCOSE 77 MG/DL (70-104); POTASSIUM 3.4 MMOL/L (3.5-5.1); SODIUM 146 MMOL/L (135-145); TOTAL CARBON DIOXIDE 23.1 MMOL/L (24-32); eGFR 66 ML/MIN
[2022-04-24 05:43] LABS: ANISOCYTOSIS 2+; PLATELET ESTIMATE NORMAL
[2022-04-24 05:44] LABS: ELLIPTOCYTES FEW; HYPOCHROMASIA 1+; POLYCHROMASIA FEW; TEAR DROP CELLS FEW
--- NOTE | 2022-04-24 06:20 | NUR ---
Patient in room ORTHO 4024. I have received report from Zuleyka and had the opportunity to ask questions and assume patient care.
--- NOTE | 2022-04-24 06:30 | NUR ---
Problems reprioritized. Patient report given, questions answered & plan of care reviewed with Juliet WHITTEN. Addendum: 04/24/22 at 0635 by Zuleyka Black RN Amended: Links added.
[2022-04-24 06:56] VITALS: BP 115/52
[2022-04-24] MEDS ORDERED: pantoprazole 40mg Tablet.DR PO SCH (07:30)
[2022-04-24] MEDS: docusate sod 100mg capsule PO SCH (07:43)
[2022-04-24] MEDS: carVEDilol 3.125mg tablet PO SCH (07:43)
[2022-04-24] MEDS: apixaban 5mg tablet PO SCH (07:44)
[2022-04-24] MEDS: aspirin 325mg tablet, delayed-release (Ecotrin) PO SCH (07:44)
[2022-04-24] MEDS: gabapentin 300mg capsule PO SCH (07:44)
[2022-04-24] MEDS: traMADol 50MG tablet PO SCH (07:46)
[2022-04-24] MEDS: nystatin 15 GM powder TP SCH (07:46)
[2022-04-24] MEDS ORDERED: thiamine 100mg tablet PO SCH (08:00)
[2022-04-24] MEDS ORDERED: tamoxifen 10mg tablet PO SCH (08:00)
[2022-04-24] MEDS ORDERED: montelukast 10mg tablet PO SCH (08:00)
[2022-04-24] MEDS ORDERED: losartan 25mg tablet PO SCH (08:00)
[2022-04-24 10:00] VITALS: BP 105/51
[2022-04-24] MEDS ORDERED: ASPI-1071 PO (11:29)
--- NOTE | 2022-04-24 12:30 | NUR ---
Discussed discharge with patient. Pt's son was present. [facility] referral given at DC 04/20/22. Reviewed DC medications with pt. Pt did not have any belongings with her in the room. Pt was wheeled downstairs to be driven home by her son. Pt is alert, oriented and expresses desire to go home.
== END 2022-04-24 12:45 | disposition home or self-care (01) | DRG 69 ==
LOC: ER 12:27 → ED HOLD 16:39 → ORTHO 4S 19:25
PROVIDERS: ADMIT Family Medicine; ATTEND Family Medicine
DX: G45.9 Transient cerebral ischemic attack, unspecified (principal); F17.210 Nicotine dependence, cigarettes, uncomplicated; I10 Essential (primary) hypertension; G89.29 Other chronic pain; J44.9 Chronic obstructive pulmonary disease, unspecified; M54.9 Dorsalgia, unspecified; I48.0 Paroxysmal atrial fibrillation; Z85.42 Personal history of malignant neoplasm of other parts of uterus; Z86.73 Personal history of transient ischemic attack (TIA), and cerebral infarction without residual deficits; Z90.710 Acquired absence of both cervix and uterus; Z91.19 Patient's noncompliance with other medical treatment and regimen; Z79.82 Long term (current) use of aspirin
CPT/HCPCS: 36415; 70450; 70544; 70551; 71045; 80048; 80053; 80061; 81001; 83735; 83880; 84484; 85008; 85025; 85610; 85730; 87081; 92508; 92616; 93880; 94640; 94760; 97161; 97530; 99285; G0378; J7030

== ENCOUNTER 2022-07-04 08:47 | Emergency (ER) | payer MEDICARE, BC ==
[~2022-07-04] VITALS: Ht 160 cm; Wt 59.1 kg
[~2022-07-04 08:47] MED LIST changes: +ASPI-1071 PO
[2022-07-04] MEDS ORDERED: acetaminophen 325mg tablet PO ONE (10:45)
[2022-07-04] MEDS ORDERED: ringers solution, lactated 1000ml IV soln IV ONE (10:45)
[2022-07-04 11:08] LABS: BASOPHILS % (AUTO) 0.1 % (0-1); EOSINOPHILS % (AUTO) 0 % (0-6); HEMATOCRIT 39.8 % (35.0-45.0); HEMOGLOBIN 13.3 g/dl (12.0-16.0); LYMPHOCYTES # (AUTO) 0.7 X10'3 (1.1-4.8); LYMPHOCYTES % (AUTO) 6.5 % (21-51); MEAN CORPUSCULAR HEMOGLOBIN 33.8 PG (27.0-31.0); MEAN CORPUSCULAR HGB CONC 33.3 g/dL (33.0-36.5); MEAN CORPUSCULAR VOLUME 101.4 FL (78-98); MONOCYTES # (AUTO) 0.8 X10'3 (0-0.9); MONOCYTES % (AUTO) 7.3 % (2-12); NEUTROPHILS # (AUTO) 9.9 X10'3 (1.8-7.7); NEUTROPHILS % (AUTO) 86.1 % (42-75); PLATELET COUNT 318 X10'3 (140-440); RED BLOOD COUNT 3.93 X10'6 (4.20-5.60); RED CELL DISTRIBUTION WIDTH 15.8 % (11.5-14.5); WHITE BLOOD COUNT 11.4 X10'3 (4.5-11.0)
[2022-07-04 11:11] LABS: CLARITY,URINE CLOUDY (Clear); COLOR,URINE YELLOW (Yellow); GLUCOSE, URINE NEGATIVE (Neg); KETONES,URINE TRACE mg/dl (Neg); LEUKOCYTE ESTERASE ,URINE SMALL (Neg); NITRITES, URINE POSITIVE (Neg); OCCULT BLOOD,URINE NEGATIVE (Neg); PROTEIN,URINE NEGATIVE (Neg); UROBILINOGEN,URINE 0.2 E.U/dL (0.2-1.0)
[2022-07-04 11:13] LABS: UA COLLECTION TYPE FOLEY CATH
[2022-07-04] MEDS ORDERED: normal saline 500ml IV soln 500 ML IV ONE (11:15)
[2022-07-04 11:17] LABS: BACTERIA,URINE 4+ /HPF (Neg); MUCUS STRANDS NONE SEEN /LPF (Neg); RBC,URINE 0-2 /HPF (0-2); SQUAMOUS EPITHELIAL CELL,UR NONE SEEN /LPF (FEW); TRANSITIONAL EPI CELLS,URINE FEW /HPF; WBC CLUMPS,URINE FEW /HPF (NEGATIVE); WBC,URINE 30-50 /HPF (0-4)
[2022-07-04 11:30] LABS: ALANINE AMINOTRANSFERASE 7 U/L (12-78); ALBUMIN 3.1 G/DL (3.4-5.0); ALBUMIN/GLOBULIN RATIO 1.2 (1.1-1.5); ALKALINE PHOSPHATASE 59 IU/L (46-116); ANION GAP 14 (8-16); ASPARTATE AMINO TRANSFERASE 15 U/L (10-37); BILIRUBIN,TOTAL 0.5 MG/DL (0.1-1.0); BLOOD UREA NITROGEN 12 MG/DL (7-18); CHLORIDE 111 MMOL/L (99-107); CREATININE 0.92 MG/DL (0.40-0.90); GLUCOSE 109 MG/DL (70-104); MAGNESIUM 1.4 MG/DL (1.5-2.4); POTASSIUM 3.6 MMOL/L (3.5-5.1); SODIUM 144 MMOL/L (135-145); TOTAL CARBON DIOXIDE 19.5 MMOL/L (24-32); TOTAL PROTEIN 5.7 G/DL (6.4-8.2); eGFR 60 ML/MIN
[2022-07-04] MEDS ORDERED: CefTRIAXone/D5W-Rocephin 1gm 50 ML IV ONE (11:30)
[2022-07-04] MEDS ORDERED: CEFP100T7 PO (13:52)
[2022-07-04 13:54] VITALS: BP 147/69
--- NOTE | 2022-07-04 14:02 | NUR ---
Pt and son given and understands d/c instructions. IV's d/c'd, catheters were intact. Provider is aware of pt's pain level.
== END 2022-07-04 14:02 | disposition home or self-care (01) ==
LOC: ER 08:47
DX: N39.0 Urinary tract infection, site not specified (principal); R53.1 Weakness; I48.91 Unspecified atrial fibrillation; J44.9 Chronic obstructive pulmonary disease, unspecified; F17.200 Nicotine dependence, unspecified, uncomplicated; Z86.73 Personal history of transient ischemic attack (TIA), and cerebral infarction without residual deficits; Z85.9 Personal history of malignant neoplasm, unspecified; Z90.710 Acquired absence of both cervix and uterus; Z79.82 Long term (current) use of aspirin; Z79.899 Other long term (current) drug therapy
CPT/HCPCS: 36415; 71045; 80053; 81001; 83605; 83735; 84145; 85025; 87040; 87077; 87088; 87186; 93005; 96365; 99285; C1758; J0696; J7040